=== PATIENT | female | born 1985 | race Caucasian/White ===

== ENCOUNTER 2018-11-09 19:19 | Emergency (ER) | payer OTHER, SELFPAY ==
[2018-11-09 19:22] VITALS: BP 162/99; PULSE 99; RESP 16; TEMP 36.5; O2SAT 99
--- NOTE | 2018-11-09 19:48 | ED.GENADUL_ITS ---
Discharge Plan Disposition Patient Disposition: HOME Condition: Improving Discharge Details Chief Complaint: Abd Prob Clinical Impression: Gastroenteritis Primary Care Provider: Nancy Feldman ED Provider: Riky Croft Home Meds and New Rx's Prescriptions: New ondansetron 4 mg tablet,disintegrating 4 mg PO QID PRN (Reason: nausea and vomiting) Qty: 10 RF: 0 No Action montelukast [Singulair] 10 MG tablet 10 mg PO DAILY Qty: 90 RF: 4 albuterol sulfate [ProAir HFA] 200 PUFF HFA aerosol inhaler 2 puff Inhalation Q6H Qty: 1 RF: 0 cyclobenzaprine 10 MG tablet 10 mg PO HS PRNQty: 30 RF: 0 ibuprofen 600 MG tablet 600 mg PO Q6H PRNQty: 20 RF: 0 famotidine [Pepcid] 20 MG tablet 20 mg PO DAILY Qty: 14 RF: 0 metoclopramide HCl [Reglan] 10 MG tablet 10 mg PO Q8H PRN (Reason: Nausea / Vomiting) Qty: 6 RF: 0 lorazepam 1 MG tablet 1 mg PO DAILY PRN PRN (Reason: Anxiety) Qty: 2 RF: 0 Discharge Instructions Instructions: Gastroenteritis (ED) Additional Instructions: Return immediately to the emergency department for any worsening of symptoms, persistent fever, vomiting, or any further concerns you may have. Otherwise stay well-hydrated, take medication as prescribed. If not improving over the next week please follow-up with your primary care provider for reassessment. Referrals: Nancy Feldman [Primary Care Provider] - (As needed for reassessment) Medical Decision Making Patient presenting to the emergency department chief complaint of abdominal pain. Patient states this is been going on for the past week and started out periumbilical and it seemed to move to the right lower quadrant with decrease in appetite. Patient does state some slight radiation of pain around to right flank that is occurred last 24 hours. She denies any urinary symptoms, fever chills, chest pain shortness of breath or difficulty breathing. Physical exam shows right lower quadrant tenderness at McBurney's point, roving sign, and positive Bernard sign. Plan to check labs and CT imaging. Pending results patient given Zofran and ketorolac. Review of labs show a nonspecific leukocytosis, normal LFTs, otherwise nondiagnostic CMP. Review of CT imaging and radiologist interpretation shows no acute findings. There is some nonspecific bowel gas pattern in the right side of the abdomen but I do not feel that there are any inflammatory changes noted at this time. Patient reassessed and states some improvement of symptoms and improvement of nausea. Patient is tolerating p.o. intake. Given her associated diarrhea nausea and abdominal pain concern for gastroenteritis. Patient prescribed Zofran and encouraged to stay well-hydrated. Return precautions were thoroughly discussed. After discussion of diagnosis and plan of care patient has no further needs, questions, or concerns and states clear understanding to return to the emergency department for any worsening symptoms. HPI General Mode of arrival: ambulatory . Date/Time Provider Initiated Documentation: 11/09/18 19:21 . Limitations to Documentation: no limitations . Information obtained by: patient . History of Present Illness 33 year old F presents to the emergency department with the chief complaint of Right-sided abdominal pain, described as moderate, with intensity rated at 6. Quality is described as aching, and is localized to the abdomen. Patient started experiencing this week(s) (1) and it has been constant. No relieving factors improve symptom(s), Patient did receive the following treatments prior to arrival, none Related Data Home Medications Medication Instructions Recorded Confirmed albuterol sulfate [ProAir HFA] 2 puff INHALATION Q6H #1 inh 05/07/15 montelukast [Singulair] 10 mg PO DAILY #90 tab-cap 05/07/15 cyclobenzaprine 10 mg PO HS PRN #30 tab 01/21/16 lorazepam 1 mg PO DAILY PRN PRN #2 tab 01/30/17 02/01/17 famotidine [Pepcid] 20 mg PO DAILY #14 tablet 02/01/17 ibuprofen 600 mg PO Q6H PRN #20 tab 02/01/17 metoclopramide HCl [Reglan] 10 mg PO Q8H PRN #6 tablet 02/01/17 ondansetron 4 mg PO QID PRN #10 tab 11/09/18 Previous Rx's Medication Instructions Recorded lorazepam 1 mg PO DAILY PRN PRN #2 tab 01/30/17 famotidine [Pepcid] 20 mg PO DAILY #14 tablet 02/01/17 ibuprofen 600 mg PO Q6H PRN #20 tab 02/01/17 metoclopramide HCl [Reglan] 10 mg PO Q8H PRN #6 tablet 02/01/17 ondansetron 4 mg PO QID PRN #10 tab 11/09/18 Allergies Allergy/AdvReac Type Severity Reaction Status Date / Time amoxicillin Allergy Intermediate Skin Rash Unverified 02/01/17 05:47 latex Allergy Intermediate Skin Rash Unverified 02/01/17 05:47 Penicillins Allergy Intermediate Skin Rash Unverified 02/01/17 05:47 azithromycin [From Zithromax] Allergy Unknown Unverified 02/01/17 05:47 lidocaine Allergy Unknown Unverified 02/01/17 05:47 Tetanus Vaccines and Toxoid Allergy Unknown Unverified 02/01/17 05:47 [Tetanus Vaccines & Toxoid] tramadol Allergy Unknown Unverified 02/01/17 05:47 Egg Derived AdvReac Intermediate Nausea Unverified 02/01/17 05:47 lactose AdvReac Unverified 02/01/17 05:47 General Stated Complaint: Abd Prob MERRITT: 3 Review of Systems Constitutional Denies chills, Denies fever(s) and Reports poor appetite Cardiovascular Denies chest pain and Denies dyspnea Respiratory Denies cough and Denies dyspnea Gastrointestinal Reports as per HPI, Reports abdominal pain, Denies melena, Denies change in bowel habits, Denies constipation, Denies diarrhea, Reports nausea and Denies vomiting Genitourinary Denies hematuria, Denies urinary incontinence, Denies urinary hesitancy and Denies urinary urgency Integumentary/Breasts Denies rash PFSH Surgical History HYSTERECTOMY (~2006) Talha Fundoplication (~2006) Tonsillectomy Family History Mother Personal history of malignant neoplasm Father No problems noted. Grandmother Heart disease Social History Smoking and Tabacco status: Former Tobacco Use Exam Const General: cooperative Orientation: alert, awake and oriented x3 Resp Effort & Inspection: normal respiratory effort and able to speak in complete sentences Auscultation: clear to auscultation bilaterally Cardio Rate: regular rate Rhythm: regular rhythm Heart Sounds: S1 normal and S2 normal GI Palpation: soft, no hepatosplenomegaly, not firm, no guarding, no masses, no pulsatile masses, not rigid, no splenomegaly and tender in the RLQ, in the RUQ, at McBurney's point, Bernard's sign positive and Rovsing's sign positive; psoas sign negative and with no rebound tenderness Auscultation: normal bowel sounds Back/Spine/Pelvis Back: no CVA tenderness Neuro General: alert, awake, oriented x3, gait normal and moves all extremities Course Vital Signs Temperature 36.5 C 11/09/18 19:22 Pulse 99 H 11/09/18 19:22 Respiratory Rate 16 11/09/18 19:22 Blood Pressure 162/99 H 11/09/18 19:22 Pulse Oximetry 99 11/09/18 19:22 Temperature 36.5 C 11/09/18 19:22 Temperature Source Skin 11/09/18 19:22 Pulse 99 H 11/09/18 19:22 Respiratory Rate 16 11/09/18 19:22 Respiratory Effort Non-Labored 11/09/18 19:26 Blood Pressure 162/99 H 11/09/18 19:22 Blood Pressure Position Sitting 11/09/18 19:22 Pulse Oximetry 99 11/09/18 19:22 Oxygen Delivery Method Room Air 11/09/18 19:22 Oxygen Flow Rate 0 11/09/18 19:22 Pain Level 8 11/09/18 19:22
[2018-11-09] MEDS: Ketorolac 30 MG/ML VIAL IVP (19:52)
[2018-11-09] MEDS: Normal Saline 1,000 ML 1000 ML IV (19:52)
[2018-11-09] MEDS: Ondansetron 4 MG/2 ML VIAL IVP (19:52)
[2018-11-09 20:07] LABS: ALT 49 U/L (12-78); AST 23 U/L (15-37); Abs Immature Grans 0.01 k/cumm (0.0-0.09); Absolute Basophil Count 0.04 k/cumm (0.0-0.2); Absolute Eosinophil Count 0.12 k/cumm (0.0-0.7); Albumin 3.5 g/dL (3.4-5.0); Alkaline Phosphatase 104 U/L (46-116); Anion Gap 8.3 mmol/L (3-11); BUN 11 mg/dL (7-18); Basophils % 0.3; Bilirubin, Total 0.4 mg/dL (0.2-1.0); CO2 27.7 mmol/L (21.0-32.0); CREATININE 0.83 mg/dL (0.55-1.02); Calcium 9.2 mg/dL (8.5-10.1); Chloride 104 mmol/L (98-107); Glucose 109 mg/dL (70-100); HCT 46.3 % (36.0-46.0); Immature Grans % 0.1; Lymphocytes % 32.3; Mean Corp. HGB Concentration 32.4 g/dL (32.0-36.0); Mean Corpuscular Hemoglobin 27.9 pg (27.0-33.0); Mean Corpuscular Volume 86.2 fL (80-95); Monocytes % 6.3; Platelet Count 405 x1000/uL (130-400); Potassium 3.6 mmol/L (3.5-5.1); RBC 5.37 m/cumm (4.00-5.20); RBC Distribution Width 13.9 % (11.7-14.6); Sodium 140 mmol/L (136-145); White Blood Cell Count 12.31 k/cumm (4.4-10.8)
[2018-11-09 20:08] LABS: Absolute Lymphocyte Count 3.98 k/cumm (1.2-3.4); Absolute Monocyte Count 0.78 k/cumm (0.11-0.7); Absolute Neutrophil Count 7.39 k/cumm (1.2-6.7)
[2018-11-09 20:14] LABS: Lipase 174 U/L (73-393)
[2018-11-09] MEDS: Omnipaque 350 MG/ML 100 ML BTL IJ (20:19)
--- NOTE | 2018-11-09 20:19 | DI.CT_ITS ---
SYMPTOMS/DIAGNOSIS: RIGHT-SIDED ABDOMINAL PAIN X 1 WEEKS, WORSENING, HAVING DIARRHEA CT OF THE ABDOMEN AND PELVIS: There are no prior comparison exams. Images were performed from the lung bases through the ischial tuberosities after IV and without oral contrast. The lung bases are clear. The liver shows fatty infiltration. Surgical clips are seen near the GE junction. The gallbladder, spleen, pancreas, kidneys and adrenals are unremarkable. The patient is status post hysterectomy. The bladder is unremarkable. The appendix appears normal. There is no bowel dilatation or inflammatory change. There is no free air or free fluid. There is a minimal amount of fat in the umbilicus. The aorta is normal in diameter. There are mild degenerative changes in the spine. IMPRESSION: Fatty infiltration of the liver. No acute abnormality.
--- NOTE | 2018-11-09 20:35 | DI.VRAD_ITS ---
EXAM: CT Abdomen and Pelvis With Contrast EXAM DATE/TIME: 11/09/2018 7:47 PM CLINICAL HISTORY: 33 years old, female; right abdominal pain; Prior surgery; date: 6+ months; hysterectomy TECHNIQUE: Axial computed tomography images of the abdomen and pelvis with intravenous contrast. All CT scans at this facility use at least one of these dose optimization techniques: automated exposure control; mA and/or kV adjustment per patient size (includes targeted exams where dose is matched to clinical indication); or iterative reconstruction. Coronal and sagittal reformatted images were created and reviewed. CONTRAST: Contrast Material: 100 ml of [id number]; Contrast Route: iv COMPARISON: No relevant prior studies available. FINDINGS: Lower thorax: No acute findings. ABDOMEN: Liver: Liver fatty infiltration. Gallbladder and bile ducts: Normal. No calcified stones. No ductal dilation. Pancreas: Normal. No ductal dilation. Spleen: Normal. No splenomegaly. Adrenals: Normal. No mass. Kidneys and ureters: Normal. No hydronephrosis. Stomach and bowel: Surgical clips in the GE junction region. Appendix: Normal appendix. PELVIS: Bladder: Unremarkable as visualized. Reproductive: Status post hysterectomy. ABDOMEN and PELVIS: Intraperitoneal space: Normal. No free air. No significant fluid collection. Bones/joints: Thoracic spinal degenerative changes. Soft tissues: Posterior subcutaneous edema in the lumbar region. Small fat-containing umbilical hernia. Vasculature: Normal. No abdominal aortic aneurysm. Lymph nodes: Normal. No enlarged lymph nodes. IMPRESSION: 1. No acute intra-abdominal or pelvic process. 2. Liver fatty infiltration. Dictated and Authenticated by: Chun Jonhson MD. Ordering:DEEDEE Lan MD
[2018-11-09 21:43] VITALS: BP 154/90; PULSE 92; RESP 16; TEMP 36.5; O2SAT 99
== END 2018-11-09 21:35 | disposition home or self-care (01) ==
PROVIDERS: Emergency Provider Nurse Practitioner Family; PCP Nurse Practitioner
DX: K52.9 Noninfective gastroenteritis and colitis, unspecified (principal)
CPT/HCPCS: 36415; 80053; 83690; 96361; 96374; 96375; 99285; 74177; 81003; 85025; 99284; J1885; J2405; J3490

== ENCOUNTER 2018-11-14 07:51 | Outpatient (CLI) | payer OTHER, SELFPAY ==
--- NOTE | 2018-11-14 08:13 | DI.US_ITS ---
SYMPTOM/DIAGNOSIS: ABD PAIN, R10.9, NAUSEA, R11.2, VOMITING ABDOMEN ULTRASOUND: Routine examination was performed. The study is limited due to patient body habitus and overlying bowel. The proximal aorta and IVC were obscured due to overlying bowel. The mid and distal aorta are of normal caliber. The liver measures 20.0 cm. in length. There is diffuse increased echogenicity of the liver suggesting hepatic steatosis. No discrete hepatic mass is seen. The portal vein could not be visualized on this examination. The gallbladder was negative. No stones, sludge or gallbladder wall thickening is seen. There was a negative sonographic Bernard's sign. The common duct is within normal limits at .4 cm. The pancreas was obscured by overlying bowel. The spleen measured 12 cm. in length. The kidneys were unremarkable sonographically. IMPRESSION: 1. Limited examination due to patient body habitus and bowel gas. 2. Hepatomegaly and hepatic steatosis.
== END 2018-11-14 08:11 ==
PROVIDERS: PCP Nurse Practitioner; Visit Provider Nurse Practitioner
DX: R10.84 Generalized abdominal pain (principal); R11.2 Nausea with vomiting, unspecified; R16.0 Hepatomegaly, not elsewhere classified; K76.0 Fatty (change of) liver, not elsewhere classified
CPT/HCPCS: 76700

== ENCOUNTER 2019-02-04 08:52 | Outpatient (REF) | payer OTHER, SELFPAY ==
[2019-02-04 14:47] LABS: Cholesterol 181 mg/dL (50-200); HDL Cholesterol 40 mg/dL (40-60); LDL CHOLESTEROL 115 mg/dL (<100); TSH (W/Ref FT4) 5.53 uIU/mL (0.358-3.74); Triglyceride 112 mg/dL (30-150); Vitamin B12 539 pg/mL (193-986)
[2019-02-04 15:48] LABS: FREE T4 0.98 ng/dL (0.76-1.46)
== END 2019-02-04 09:12 ==
LOC: NCHCN 08:52
PROVIDERS: PCP Nurse Practitioner; Visit Provider Nurse Practitioner
DX: E03.9 Hypothyroidism, unspecified (principal); F32.9 Major depressive disorder, single episode, unspecified; K76.0 Fatty (change of) liver, not elsewhere classified; E66.9 Obesity, unspecified
CPT/HCPCS: 80061; 82306; 83721; 82607; 84439; 84443

== ENCOUNTER 2019-06-03 16:09 | Outpatient (REF) | payer OTHER, SELFPAY ==
[2019-06-03 20:15] LABS: Vitamin D 25 Total 15.3 ng/ml (30-100)
== END 2019-06-03 16:29 ==
LOC: NCHCN 16:09
PROVIDERS: PCP Nurse Practitioner; Visit Provider Nurse Practitioner
DX: E55.9 Vitamin D deficiency, unspecified (principal)
CPT/HCPCS: 82306

== ENCOUNTER 2019-06-05 00:50 | Outpatient (CLI) | payer OTHER, SELFPAY ==
--- NOTE | 2019-06-05 17:18 | DI.DEXA_ITS ---
EXAM: XR DEXA BONE DENSITY W/WO ARNIE INDICATION: SCREENING FOR OSTEOPOROSIS Z13.80, VIT D DEFICIENCY E55.9, SMOKER F17.210. EARLY [place] SE,E28.319. COMPARISON: No exams were available for comparison TECHNIQUE: 2D digital imaging was performed. FINDINGS: The scanogram is unremarkable. For the left hip, a T-score -0.3 and a Z-score -0.2 would be consiste nt with the normal range. For the lumbar spine, T-score of 0.1 and a Z-score of 0.2 are also withi n the normal range. The left forearm T-score is -0.4 and a Z-score of -0.1 are within the normal ran ge. IMPRESSION
== END 2019-06-05 01:10 ==
PROVIDERS: PCP Nurse Practitioner; Visit Provider Nurse Practitioner
DX: E55.9 Vitamin D deficiency, unspecified (principal); E28.319 Asymptomatic premature menopause; Z13.820 Encounter for screening for osteoporosis; F17.220 Nicotine dependence, chewing tobacco, uncomplicated
CPT/HCPCS: 77080

== ENCOUNTER 2019-09-24 09:46 | Outpatient (REF) | payer OTHER, SELFPAY ==
[2019-09-24 13:03] LABS: ALT 42 U/L (14-59); AST 24 U/L (15-37); Albumin 3.8 g/dL (3.4-5.0); Alkaline Phosphatase 89 U/L (46-116); Anion Gap 12.5 mmol/L (3-11); BUN 13 mg/dL (7-18); Bilirubin, Total 0.7 mg/dL (0.2-1.0); CO2 26.5 mmol/L (21.0-32.0); CREATININE 0.82 mg/dL (0.55-1.02); Calcium 9.2 mg/dL (8.5-10.1); Chloride 104 mmol/L (98-107); Glucose 98 mg/dL (74-106); Potassium 3.9 mmol/L (3.5-5.1); Sodium 143 mmol/L (136-145); TSH (W/Ref FT4) 2.36 uIU/mL (0.36-3.74); Total Protein 7.4 g/dL (6.4-8.2)
[2019-09-26 05:42] LABS: Vitamin D 25 Total 21.1 ng/ml (30-100)
== END 2019-09-24 10:06 ==
LOC: NCHCN 09:46
PROVIDERS: PCP Nurse Practitioner; Visit Provider Nurse Practitioner
DX: E03.9 Hypothyroidism, unspecified (principal); E55.9 Vitamin D deficiency, unspecified
CPT/HCPCS: 80053; 82306; 84443

== ENCOUNTER 2019-11-13 13:25 | Outpatient (REF) | payer OTHER, SELFPAY ==
[2019-11-15 10:39] LABS: HIV-1/2 Ag & Ab Screen Negative (Negative)
[2019-11-15 14:15] LABS: Chlamydia Result Negative (Negative); GC Result Negative (Negative)
== END 2019-11-13 13:45 ==
LOC: NCHCN 13:25
PROVIDERS: PCP Nurse Practitioner; Visit Provider Nurse Practitioner
DX: Z11.3 Encounter for screening for infections with a predominantly sexual mode of transmission (principal); Z11.4 Encounter for screening for human immunodeficiency virus [HIV]
CPT/HCPCS: 87389; 87491; 87591

== ENCOUNTER → 2020-09-10 11:02 | Outpatient (CLI) | payer OTHER, SELFPAY ==
--- NOTE | 2020-09-10 10:00 | DI.RAD_ITS ---
EXAM: XR KNEE RT 4V AP,LAT,DASHA,PAT CLINICAL HISTORY: right knee pain. TECHNIQUE: 2D digital imaging was performed. COMPARISON: No previous for comparison. FINDINGS: BONES: No acute fracture is present. No bony destructive lesion is seen. There is an enthesophyte at the superior patella. JOINTS: The knee is normally aligned. No joint effusion is seen. Mild joint space narrowing and peria rticular spurring is seen in the lateral femoral tibial joint. SOFT TISSUE: Normal. IMPRESSION: Mild degenerative changes of the right knee. DATA REPOSITORY: RADIATION DOSE DELIVERED:
== END ==
PROVIDERS: PCP Nurse Practitioner; Visit Provider Physician Assistant
DX: M17.11 Unilateral primary osteoarthritis, right knee (principal)
CPT/HCPCS: 73564

== ENCOUNTER 2020-12-16 10:51 | Outpatient (REF) | payer OTHER, SELFPAY ==
[2020-12-16 16:11] LABS: HCT 44.4 % (36.0-46.0); HGB 14.1 g/dL (11.2-15.7); MCH 28.6 pg (27.0-33.0); MCHC 31.8 % (32.0-36.0); MCV 90.1 fL (80-95); MPV 10.6 fL (8.0-11.0); Platelet Count 325 10^3/uL (130-400); RBC 4.93 10^6/uL (3.93-5.22); RDW 12.7 % (11.7-14.6); WBC 8.98 10^3/uL (4.4-10.8)
[2020-12-16 16:30] LABS: ALT 62 U/L (14-59); AST 27 U/L (15-37); Albumin 3.8 g/dL (3.4-5.0); Alkaline Phosphatase 85 U/L (46-116); Anion Gap 10.3 mmol/L (3-11); BUN 15 mg/dL (7-18); Bilirubin, Total 0.4 mg/dL (0.2-1.0); CO2 26.7 mmol/L (21.0-32.0); CREATININE 0.9 mg/dL (0.55-1.02); Calcium 9.7 mg/dL (8.5-10.1); Chloride 105 mmol/L (98-107); Glucose 98 mg/dL (74-106); Potassium 4.7 mmol/L (3.5-5.1); Sodium 142 mmol/L (136-145); TSH (W/Ref FT4) 3.15 uIU/mL (0.36-3.74); Total Protein 7.3 g/dL (6.4-8.2)
[2020-12-17 04:32] LABS: Vitamin D 25 Total 22.7 ng/mL (30-100)
== END 2020-12-16 10:52 | disposition home or self-care (01) ==
LOC: NCHCN 10:51
PROVIDERS: PCP Nurse Practitioner; Visit Provider Nurse Practitioner
DX: E03.9 Hypothyroidism, unspecified (principal); R53.83 Other fatigue; E55.9 Vitamin D deficiency, unspecified
CPT/HCPCS: 80053; 82306; 85027; 84443

== ENCOUNTER 2021-03-30 16:40 | Emergency (ER) | payer OTHER, SELFPAY ==
[2021-03-30 16:58] VITALS: BP 130/85; PULSE 89; RESP 18
--- NOTE | 2021-03-30 17:41 | W.ED.GENAD ---
Discharge Plan Disposition Patient Disposition: HOME Condition: Stable Discharge Details Clinical Impression: Pain of left heel, Heel spur Primary Care Provider: Nancy Feldman ED Provider: Sonido Brown Home Meds and New Rx's Prescriptions: No Action montelukast [Singulair] 10 MG tablet 10 mg PO DAILY Qty: 90 RF: 4 albuterol sulfate [ProAir HFA] 200 PUFF HFA aerosol inhaler 2 puff Inhalation Q6H Qty: 1 RF: 0 cyclobenzaprine 10 MG tablet 10 mg PO HS PRNQty: 30 RF: 0 ibuprofen 600 MG tablet 600 mg PO Q6H PRNQty: 20 RF: 0 famotidine [Pepcid] 20 MG tablet 20 mg PO DAILY Qty: 14 RF: 0 metoclopramide HCl [Reglan] 10 MG tablet 10 mg PO Q8H PRN (Reason: Nausea / Vomiting) Qty: 6 RF: 0 lorazepam 1 MG tablet 1 mg PO DAILY PRN PRN (Reason: Anxiety) Qty: 2 RF: 0 ondansetron 4 mg tablet,disintegrating 4 mg PO QID PRN (Reason: nausea and vomiting) Qty: 10 RF: 0 Discharge Instructions Instructions: Heel Spur (ED) Additional Instructions: Medication reconciliation could not be performed today. Please discuss your medications with your doctor. Please take acetaminophen (tylenol) - 650mg every 6 hours by mouth as needed for pain. Please take ibuprofen over the counter. Take 600mg by mouth every 6 hours as needed for pain. Please use orthopedic boot and crutches. Minimize weightbearing to toe-touch only for the next 1 week. Please follow-up with orthopedics. If pain persist additional diagnostic testing will be necessary. Please contact your primary care physician to arrange follow-up. Return to the ER for any worsening or new concerning symptoms. Stand Alone Forms: Work Release Referrals: [facility] [Provider Group] Nancy Feldman [Primary Care Provider] - Discharge Data Discharge Date/Time-TO BE ENTERED AT DEPARTURE: 03/30/21 19:10 Medical Decision Making <Sonido Brown MD - Last Filed: 04/11/21 10:11> 36-year-old female here with left heel pain that started about a month ago when she directly impacted her heel on a sharp stone. Consider persistent calcaneal fracture. X-ray of the left calcaneus was reviewed and interpreted by radiology: Heel spurs present, no fracture. Patient has been ambulating on her foot. I will provide short orthopedic ankle boot and advised her to use crutches with toe-touch weightbearing. She has crutches at home and does not need additional at this time. I advised her to follow-up with orthopedics. <CARLINE Barahona - Last Filed: 04/01/21 21:16> My name was entered into this chart in error. HPI <Sonido Brown MD - Last Filed: 04/11/21 10:11> General Date/Time Provider Initiated Documentation: 03/30/21 17:41. Related Data Home Medications Medication Instructions Recorded Confirmed albuterol sulfate [ProAir HFA] 2 puff INHALATION Q6H #1 inh 05/07/15 09/10/20 montelukast [Singulair] 10 mg PO DAILY #90 tab-cap 05/07/15 09/10/20 cyclobenzaprine 10 mg PO HS PRN #30 tab 01/21/16 09/10/20 lorazepam 1 mg PO DAILY PRN PRN #2 tab 01/30/17 09/10/20 famotidine [Pepcid] 20 mg PO DAILY #14 tab 02/01/17 09/10/20 ibuprofen 600 mg PO Q6H PRN #20 tab 02/01/17 09/10/20 metoclopramide HCl [Reglan] 10 mg PO Q8H PRN #6 tab 02/01/17 09/10/20 ondansetron 4 mg PO QID PRN #10 tab 11/09/18 09/10/20 Previous Rx's Medication Instructions Recorded lorazepam 1 mg PO DAILY PRN PRN #2 tab 01/30/17 famotidine [Pepcid] 20 mg PO DAILY #14 tab 02/01/17 ibuprofen 600 mg PO Q6H PRN #20 tab 02/01/17 metoclopramide HCl [Reglan] 10 mg PO Q8H PRN #6 tab 02/01/17 ondansetron 4 mg PO QID PRN #10 tab 11/09/18 Allergies Allergy/AdvReac Type Severity Reaction Status Date / Time amoxicillin Allergy Intermediate Skin Rash Unverified 03/30/21 17:02 latex Allergy Intermediate Skin Rash Unverified 03/30/21 17:02 Penicillins Allergy Intermediate Skin Rash Unverified 03/30/21 17:02 azithromycin [From Zithromax] Allergy Unknown Unverified 03/30/21 17:02 lidocaine Allergy Unknown Unverified 03/30/21 17:02 Tetanus Vaccines and Toxoid Allergy Unknown Unverified 03/30/21 17:02 [Tetanus Vaccines & Toxoid] tramadol Allergy Unknown Unverified 03/30/21 17:02 Egg Derived AdvReac Intermediate Nausea Unverified 03/30/21 17:02 lactose AdvReac Unverified 03/30/21 17:02 <CARLINE Barahona - Last Filed: 04/01/21 21:16> General Stated Complaint: Orthopedic MERRITT: 4 PFSH <Sonido Brown MD - Last Filed: 04/11/21 10:11> Medical History (Updated 03/30/21 @ 18:59 by Sonido Brown MD) Internal derangement of right knee Patellar tendinitis of right knee Surgical History HYSTERECTOMY (~2006) ENDOMETRIOSIS/cervix still intact Talha Fundoplication (~2006) Tonsillectomy 16 YRS OLD Family History Mother Personal history of malignant neoplasm SKIN Father No problems noted. Grandmother Heart disease Social History Smoking/Tobacco Use Status: Former Tobacco Use Smoking risk assessment performed?: Yes Alcohol Intake: never Drug use: Never Substance use type: does not use Do you feel safe in your relationship?: Yes Exam <Sonido Brown MD - Last Filed: 04/11/21 10:11> Const General: cooperative and no acute distress Cardio Rate: regular rate and not tachycardic Rhythm: regular rhythm Skin General skin exam: no rashes or lesions noted Neuro General: patient alert, patient awake, patient oriented x3 and tone normal Extrem Left lower extremity: foot Details: tenderness Location: of the calcaneus Details: point tenderness, toes with normal ROM, no edema, vascular exam Details: dorsalis pedis pulse present and normal capillary refill and motor-sensory exam Details: light-touch normal; no unusual warmth, no lacerations and no ecchymosis <CARLINE Barahona - Last Filed: 04/01/21 21:16> Vital Signs Vital signs: Vital Signs Pulse 89 03/30/21 16:58 Respiratory Rate 18 03/30/21 16:58 Blood Pressure 130/85 03/30/21 16:58 Pulse 89 03/30/21 16:58 Respiratory Rate 18 03/30/21 16:58 Respiratory Effort Non-Labored 03/30/21 17:01 Blood Pressure 130/85 03/30/21 16:58 Blood Pressure Position Sitting 03/30/21 16:58 Pain Level 10 03/30/21 16:58
--- NOTE | 2021-03-30 17:45 | DI.RAD_ITS ---
Exam(s) XR HEEL LT OS CALCIS EXAM: XR HEEL LT OS CALCIS CLINICAL HISTORY: pain 1 month after injury. TECHNIQUE: 2D digital imaging was performed. COMPARISON: No exams were available for comparison FINDINGS: Two dedicated views of the left calcaneus including lateral and Tim axial view. There is no evidence of acute fracture. No heel ulcer. No radiopaque foreign body. No radiographic evidence of osteomyelitis. 5 millimeter inferior calcaneal spur is noted. Calcification is noted a t the insertion site of the Achilles tendon on the posterior aspect of the calcaneus. Os trigonum no han. Anterior process of the calcaneus is intact. Calcaneocuboid and subtalar joints appear unremar kable as does the talonavicular joint. IMPRESSION: No fracture. No radiopaque foreign body. DATA REPOSITORY: RADIATION DOSE DELIVERED:
[2021-03-30] MEDS: Acetaminophen 325 MG TAB 650 MG PO (18:00)
--- NOTE | 2021-03-30 18:24 | DI.VRAD_ITS ---
PROCEDURE INFORMATION: Exam: XR Left Calcaneus Exam date and time: 03/30/2021 5:55 PM Age: 36 years old Clinical indication: Patient HX: Left heel pain, PT stubbed heel on rock x1 month ago, worsening pain TECHNIQUE: Imaging protocol: XR of the Left calcaneus. Views: 2 or more views. Total images: 2 COMPARISON: CR LEFT KNEE 3 VIEW COMPLETE 09/18/2016 4:23 PM FINDINGS: Bones/joints: There is posterior and plantar calcaneal enthesophyte formation. No acute fracture or malalignment. Soft tissues: Normal. IMPRESSION: 1. Heel spur. 2. No acute fracture or malalignment. Dictated and Authenticated by: Jarett Fuller MD. Ordering:ALPHONSE Head MD
--- NOTE | 2021-03-30 18:57 | W.ED.GENAD ---
Discharge Plan Disposition Patient Disposition: HOME Condition: Stable Discharge Details Chief Complaint: Orthopedic Clinical Impression: Pain of left heel, Heel spur Primary Care Provider: Nancy Feldman ED Provider: Sonido Brown Home Meds and New Rx's Prescriptions: No Action montelukast [Singulair] 10 MG tablet 10 mg PO DAILY Qty: 90 RF: 4 albuterol sulfate [ProAir HFA] 200 PUFF HFA aerosol inhaler 2 puff Inhalation Q6H Qty: 1 RF: 0 cyclobenzaprine 10 MG tablet 10 mg PO HS PRNQty: 30 RF: 0 ibuprofen 600 MG tablet 600 mg PO Q6H PRNQty: 20 RF: 0 famotidine [Pepcid] 20 MG tablet 20 mg PO DAILY Qty: 14 RF: 0 metoclopramide HCl [Reglan] 10 MG tablet 10 mg PO Q8H PRN (Reason: Nausea / Vomiting) Qty: 6 RF: 0 lorazepam 1 MG tablet 1 mg PO DAILY PRN PRN (Reason: Anxiety) Qty: 2 RF: 0 ondansetron 4 mg tablet,disintegrating 4 mg PO QID PRN (Reason: nausea and vomiting) Qty: 10 RF: 0 Discharge Instructions Instructions: Heel Spur (ED) Additional Instructions: Medication reconciliation could not be performed today. Please discuss your medications with your doctor. Please take acetaminophen (tylenol) - 650mg every 6 hours by mouth as needed for pain. Please take ibuprofen over the counter. Take 600mg by mouth every 6 hours as needed for pain. Please use orthopedic boot and crutches. Minimize weightbearing to toe-touch only for the next 1 week. Please follow-up with orthopedics. If pain persist additional diagnostic testing will be necessary. Please contact your primary care physician to arrange follow-up. Return to the ER for any worsening or new concerning symptoms. Stand Alone Forms: Work Release Referrals: [facility] [Provider Group] Nancy Feldman [Primary Care Provider] - [facility] General Date/Time Provider Initiated Documentation: 03/30/21 17:41. Related Data Home Medications Medication Instructions Recorded Confirmed albuterol sulfate [ProAir HFA] 2 puff INHALATION Q6H #1 inh 05/07/15 09/10/20 montelukast [Singulair] 10 mg PO DAILY #90 tab-cap 05/07/15 09/10/20 cyclobenzaprine 10 mg PO HS PRN #30 tab 01/21/16 09/10/20 lorazepam 1 mg PO DAILY PRN PRN #2 tab 01/30/17 09/10/20 famotidine [Pepcid] 20 mg PO DAILY #14 tab 02/01/17 09/10/20 ibuprofen 600 mg PO Q6H PRN #20 tab 02/01/17 09/10/20 metoclopramide HCl [Reglan] 10 mg PO Q8H PRN #6 tab 02/01/17 09/10/20 ondansetron 4 mg PO QID PRN #10 tab 11/09/18 09/10/20 Previous Rx's Medication Instructions Recorded lorazepam 1 mg PO DAILY PRN PRN #2 tab 01/30/17 famotidine [Pepcid] 20 mg PO DAILY #14 tab 02/01/17 ibuprofen 600 mg PO Q6H PRN #20 tab 02/01/17 metoclopramide HCl [Reglan] 10 mg PO Q8H PRN #6 tab 02/01/17 ondansetron 4 mg PO QID PRN #10 tab 11/09/18 Allergies Allergy/AdvReac Type Severity Reaction Status Date / Time amoxicillin Allergy Intermediate Skin Rash Unverified 03/30/21 17:02 latex Allergy Intermediate Skin Rash Unverified 03/30/21 17:02 Penicillins Allergy Intermediate Skin Rash Unverified 03/30/21 17:02 azithromycin [From Zithromax] Allergy Unknown Unverified 03/30/21 17:02 lidocaine Allergy Unknown Unverified 03/30/21 17:02 Tetanus Vaccines and Toxoid Allergy Unknown Unverified 03/30/21 17:02 [Tetanus Vaccines & Toxoid] tramadol Allergy Unknown Unverified 03/30/21 17:02 Egg Derived AdvReac Intermediate Nausea Unverified 03/30/21 17:02 lactose AdvReac Unverified 03/30/21 17:02 General Stated Complaint: Orthopedic MERRITT: 4 [facility] Medical History (Updated 03/30/21 @ 18:59 by Sonido Brown MD) Internal derangement of right knee Patellar tendinitis of right knee Surgical History HYSTERECTOMY (~2006) ENDOMETRIOSIS/cervix still intact Talha Fundoplication (~2006) Tonsillectomy 16 YRS OLD Family History Mother Personal history of malignant neoplasm SKIN Father No problems noted. Grandmother Heart disease Social History Smoking/Tobacco Use Status: Former Tobacco Use Smoking risk assessment performed?: Yes Alcohol Intake: never Drug use: Never Substance use type: does not use Do you feel safe in your relationship?: Yes Course Vital Signs Vital signs: Vital Signs Pulse 89 03/30/21 16:58 Respiratory Rate 18 03/30/21 16:58 Blood Pressure 130/85 03/30/21 16:58 Pulse 89 03/30/21 16:58 Respiratory Rate 18 03/30/21 16:58 Respiratory Effort Non-Labored 03/30/21 17:01 Blood Pressure 130/85 03/30/21 16:58 Blood Pressure Position Sitting 03/30/21 16:58 Pain Level 10 03/30/21 16:58
== END 2021-03-30 19:10 | disposition home or self-care (01) ==
PROVIDERS: Emergency Provider Student in an Organized Health Care Education/Training Program; PCP Nurse Practitioner
DX: M79.672 Pain in left foot (principal); M77.32 Calcaneal spur, left foot
CPT/HCPCS: 29515; 99283; 73650

== ENCOUNTER 2022-10-26 16:51 | Outpatient (REF) | payer OTHER, SELFPAY ==
[2022-10-26 19:04] LABS: Abs Immature Grans 0.02 10^3/uL (0.0-0.06); Absolute Basophil Count 0.05 10^3/uL (0.0-0.2); Absolute Eosinophil Count 0.11 10^3/uL (0.0-0.7); Absolute Monocyte Count 0.56 10^3/uL (0.1-0.8); Basophils % 0.5; Eosinophils % 1.1; HCT 43.6 % (36.0-46.0); HGB 13.9 g/dL (11.2-15.7); Immature Grans % 0.2; Lymphocytes % 36.5; MCH 28.5 pg (27.0-33.0); MCHC 31.9 % (32.0-36.0); MCV 89 fL (80-95); MPV 10.2 fL (8.0-11.0); Monocytes % 5.5; Neutrophils % 56.2; Platelet Count 343 10^3/uL (130-400); RBC 4.88 10^6/uL (3.93-5.22); RDW 13.2 % (11.7-14.6); RDW-SD 43.6 fL; WBC 10.14 10^3/uL (4.4-10.8)
[2022-10-26 19:38] LABS: ALT 67 U/L (14-59); AST 40 U/L (15-37); Albumin 4.1 g/dL (3.4-5.0); Alkaline Phosphatase 95 U/L (46-116); Anion Gap 9.8 mmol/L (3-11); BUN 13 mg/dL (7-18); Bilirubin, Total 0.5 mg/dL (0.2-1.0); CO2 28.2 mmol/L (21.0-32.0); CREATININE 0.8 mg/dL (0.55-1.02); Calcium 9.7 mg/dL (8.5-10.1); Chloride 101 mmol/L (98-107); Estimated GFR 96.06 (mL/min/1.73m2); Glucose 94 mg/dL (74-106); Potassium 3.8 mmol/L (3.5-5.1); Sodium 139 mmol/L (136-145); Total Protein 7.9 g/dL (6.4-8.2); Vitamin B12 745 pg/mL (193-986)
[2022-10-26 19:56] LABS: FREE T4 0.97 ng/dL (0.76-1.46)
[2022-10-26 20:32] LABS: Vitamin D 25 Total 35.2 ng/mL (30-100)
== END 2022-10-26 16:52 | disposition home or self-care (01) ==
LOC: NCHCN 16:51
PROVIDERS: PCP Nurse Practitioner; Visit Provider Nurse Practitioner Family
DX: E03.9 Hypothyroidism, unspecified (principal); R53.83 Other fatigue; K76.0 Fatty (change of) liver, not elsewhere classified; Z13.21 Encounter for screening for nutritional disorder; Z91.89 Other specified personal risk factors, not elsewhere classified
CPT/HCPCS: 80053; 82306; 82607; 84439; 84443; 85025

== ENCOUNTER 2022-12-15 16:15 | Outpatient (REF) | payer OTHER, SELFPAY ==
--- NOTE | 2022-12-15 15:45 | PAPFT_PTH ---
PATIENT: Jennifer Valencia LOC: [facility] U#:[id number] AGE/SX: 37/F ROOM: RE12/15/[address]: Nanette Chew DO : 1985 BED: DIS: 12/15/2022 SPEC #: [id number] RECD: 12/15/22 18:32 STATUS: AVANIAlice REQ #: [id number] GLENN: 12/15/22 15:[address]: Nanette Chew DEPT: [facility] Cytology RECD BY: Chantal Romo ENTERED: 12/15/22 18:33 SP TYPE: PAPFT OTHR DR: Nancy Feldman Tissues: 1 - CX/ENDOCX FOR PAP SMEARS Procedures: PAP THIN PREP/UVM Screening HPV DNA PROBE Comments: [id number] (HPV 16 & 18/45)
== END 2022-12-15 16:16 | disposition home or self-care (01) ==
LOC: LBN 16:15
PROVIDERS: PCP Nurse Practitioner; Visit Provider Obstetrics & Gynecology
DX: Z12.4 Encounter for screening for malignant neoplasm of cervix (principal); Z11.51 Encounter for screening for human papillomavirus (HPV); R87.810 Cervical high risk human papillomavirus (HPV) DNA test positive
CPT/HCPCS: 88142; 87624

== ENCOUNTER 2023-01-20 15:19 | Outpatient (REF) | payer OTHER, SELFPAY ==
[2023-01-20 14:31] LABS: Abs Immature Grans 0.03 10^3/uL (0.0-0.06); Absolute Basophil Count 0.04 10^3/uL (0.0-0.2); Absolute Eosinophil Count 0.12 10^3/uL (0.0-0.7); Absolute Lymphocyte Count 3.12 10^3/uL (1.2-3.4); Basophils % 0.3; HCT 45.7 % (36.0-46.0); HGB 14.8 g/dL (11.2-15.7); Immature Grans % 0.3; Lymphocytes % 26.5; MCH 28.2 pg (27.0-33.0); MCHC 32.4 % (32.0-36.0); MCV 87 fL (80-95); MPV 10.6 fL (8.0-11.0); Monocytes % 5.3; Neutrophils % 66.6; Platelet Count 365 10^3/uL (130-400); RBC 5.25 10^6/uL (3.93-5.22); RDW-SD 41.1 fL; WBC 11.78 10^3/uL (4.4-10.8)
[2023-01-20 14:32] LABS: Absolute Monocyte Count 0.62 10^3/uL (0.1-0.8); Absolute Neutrophil Count 7.85 10^3/uL (1.2-6.7)
[2023-01-20 14:35] LABS: ALT 87 U/L (14-59); AST 43 U/L (15-37); Albumin 3.9 g/dL (3.4-5.0); Alkaline Phosphatase 100 U/L (46-116); Anion Gap 7.3 mmol/L (3-11); BUN 11 mg/dL (7-18); Bilirubin, Total 0.5 mg/dL (0.2-1.0); CO2 27.7 mmol/L (21.0-32.0); CREATININE 0.8 mg/dL (0.55-1.02); Calcium 9.9 mg/dL (8.5-10.1); Chloride 104 mmol/L (98-107); Estimated GFR 95.46 (mL/min/1.73m2); Glucose 88 mg/dL (74-106); Lipase 33 U/L (16-77); Potassium 4.6 mmol/L (3.5-5.1); Sodium 139 mmol/L (136-145)
== END 2023-01-20 15:20 | disposition home or self-care (01) ==
LOC: LBN 15:19
PROVIDERS: PCP Nurse Practitioner Family; Visit Provider Physician Assistant Medical
DX: R10.11 Right upper quadrant pain (principal)
CPT/HCPCS: 80053; 83690; 85025

== ENCOUNTER 2023-05-26 15:30 | Outpatient (REF) | payer OTHER, SELFPAY ==
[2023-05-26 16:21] LABS: HCT 45.2 % (36.0-46.0); HGB 14.5 g/dL (11.2-15.7); MCH 28.3 pg (27.0-33.0); MCHC 32.1 % (32.0-36.0); MCV 88 fL (80-95); MPV 10.6 fL (8.0-11.0); Platelet Count 305 10^3/uL (130-400); RBC 5.13 10^6/uL (3.93-5.22); RDW 13.2 % (11.7-14.6); RDW-SD 43.2 fL; WBC 8.86 10^3/uL (4.4-10.8)
[2023-05-26 16:26] LABS: ESR 16 mm/hr (0-20)
[2023-05-26 16:45] LABS: Iron 77 ug/dL (50-170)
[2023-05-26 16:59] LABS: ALT 55 U/L (14-59); AST 31 U/L (15-37); Albumin 4.1 g/dL (3.4-5.0); Alkaline Phosphatase 90 U/L (46-116); Anion Gap 9.8 mmol/L (3-11); BUN 15 mg/dL (7-18); Bilirubin, Total 0.5 mg/dL (0.2-1.0); C-Reactive Protein 0.98 mg/dL (0.0-0.3); CO2 29.2 mmol/L (21.0-32.0); Chloride 102 mmol/L (98-107); Estimated GFR 73.04 (mL/min/1.73m2); Glucose 91 mg/dL (74-106); Potassium 4.3 mmol/L (3.5-5.1); Sodium 141 mmol/L (136-145); TSH (W/Ref FT4) 2.17 uIU/mL (0.36-3.74); Total Protein 7.7 g/dL (6.4-8.2)
[2023-05-26 17:06] LABS: Vitamin D 25 Total 32.8 ng/mL (30-100)
[2023-05-26 17:48] LABS: Cholesterol 188 mg/dL (<200)
[2023-05-26 19:25] LABS: Calculated LDL 109 mg/dL (<100); HDL Cholesterol 47 mg/dL (40-60); Triglyceride 161 mg/dL (<150); Vitamin B12 722 pg/mL (193-986)
== END 2023-05-26 15:31 | disposition home or self-care (01) ==
LOC: NCHCN 15:30
PROVIDERS: PCP Nurse Practitioner Family; Visit Provider Nurse Practitioner Family
DX: R53.83 Other fatigue (principal); K76.0 Fatty (change of) liver, not elsewhere classified; E78.5 Hyperlipidemia, unspecified; E03.9 Hypothyroidism, unspecified; R73.09 Other abnormal glucose; E55.9 Vitamin D deficiency, unspecified; R79.82 Elevated C-reactive protein (CRP); Z79.899 Other long term (current) drug therapy
CPT/HCPCS: 80053; 80061; 82306; 85027; 85652; 82607; 83540; 84443; 86140

== ENCOUNTER 2023-11-17 19:05 | Outpatient (REF) | payer OTHER, SELFPAY ==
[2023-11-17 15:22] LABS: Abs Immature Grans 0.02 10^3/uL (0.0-0.06); Absolute Basophil Count 0.06 10^3/uL (0.0-0.2); Absolute Eosinophil Count 0.11 10^3/uL (0.0-0.7); Absolute Monocyte Count 0.53 10^3/uL (0.1-0.8); Absolute Neutrophil Count 6.15 10^3/uL (1.2-6.7); Basophils % 0.6; Eosinophils % 1.1; HCT 45.2 % (36.0-46.0); HGB 14.7 g/dL (11.2-15.7); Immature Grans % 0.2; Lymphocytes % 31.8; MCH 28.8 pg (27.0-33.0); MCHC 32.5 % (32.0-36.0); MCV 89 fL (80-95); MPV 10.7 fL (8.0-11.0); Monocytes % 5.3; Platelet Count 285 10^3/uL (130-400); RBC 5.11 10^6/uL (3.93-5.22); RDW-SD 42.5 fL; WBC 10.07 10^3/uL (4.4-10.8)
[2023-11-17 15:36] LABS: ALT 39 U/L (14-59); AST 21 U/L (15-37); Albumin 3.5 g/dL (3.4-5.0); Alkaline Phosphatase 86 U/L (46-116); Anion Gap 8.1 mmol/L (3-11); BUN 14 mg/dL (7-18); Bilirubin, Total 0.4 mg/dL (0.2-1.0); CO2 28.9 mmol/L (21.0-32.0); CREATININE 0.9 mg/dL (0.55-1.02); Calcium 9.4 mg/dL (8.5-10.1); Chloride 107 mmol/L (98-107); Estimated GFR 82.88 (mL/min/1.73m2); Glucose 101 mg/dL (74-106); Potassium 4.2 mmol/L (3.5-5.1); Sodium 144 mmol/L (136-145)
== END 2023-11-17 19:06 | disposition home or self-care (01) ==
LOC: NCHCN 19:05
PROVIDERS: PCP Nurse Practitioner Family; Referring Provider Family Medicine; Visit Provider Family Medicine
DX: R22.1 Localized swelling, mass and lump, neck (principal)
CPT/HCPCS: 80053; 85025

== ENCOUNTER 2023-12-01 18:29 | Outpatient (REF) | payer OTHER, SELFPAY ==
[2023-12-03 22:59] LABS: Campylobacter PCR Negative (Negative); Salmonella PCR Negative (Negative); Shiga Toxin PCR Negative (Negative); Shigella/Enteroinvasive Ecoli Negative (Negative)
== END 2023-12-01 18:30 | disposition home or self-care (01) ==
LOC: LBN 18:29
PROVIDERS: PCP Nurse Practitioner Family; Visit Provider Physician Assistant Medical
DX: R19.7 Diarrhea, unspecified (principal)
CPT/HCPCS: 87329; 87493; 87505; 87177

== ENCOUNTER 2024-02-25 14:46 | Emergency (ER) | payer OTHER, SELFPAY ==
[2024-02-25 14:48] VITALS: BP 168/84; PULSE 95; RESP 14; TEMP 36.2; O2SAT 98
[2024-02-25] MEDS: Fluorescein STRIPS 100/BOX 1 MG OP (15:13)
--- NOTE | 2024-02-25 15:29 | DI.CT_ITS ---
Exam(s) CT ORBITS W EXAM: CT ORBITS W CLINICAL HISTORY: left orbital pain, lateral and upward gaze pain. TECHNIQUE: Imaging Protocol: Axial computed tomography images with coronal and sagittal reformatted images were created and reviewed. No IV contrast COMPARISON: CT SINUS CT WITHOUT CONTRAST from 04/09/2018 FINDINGS: MAXILLOFACIAL CT SCAN: There is no evidence of facial fractures nor fluid the visualized paranasal sinuses. There is no roselia dence of orbital blowout fracture. Orbits: No exophthalmos nor enophthalmos. No evidence of dysconjugate gaze. Lacrimal glands appear unremarkable. No abnormalities evident within the globes and anterior chamber s. Retro conal compartments appear unremarkable. Extraocular muscles appear symmetrical. Optic ner ves appear unremarkable. Paranasal sinuses are clear. No mucosal thickening nor fluid levels. IMPRESSION: No evidence of facial bone fractures nor orbital fractures. No abnormal soft tissue findings in the orbits. RADIATION DOSE DELIVERED: 261.56mGy.cm Total DLP DATA REPOSITORY: All CT scans at this facility are submitted to the National Radiology Data Registry (NRDR) Dose Index Registry (DIR) with the [employer] (ACR). RADIATION OPTIMIZATION: All CT scans at this facility use at least one of these dose optimization te chniques: automated exposure control; mA and/or kV adjustment per patient size (includes targeted exa ms where dose is matched to clinical indication); or iterative reconstruction.
[2024-02-25 15:40] LABS: Abs Immature Grans 0.02 10^3/uL (0.0-0.06); Absolute Basophil Count 0.05 10^3/uL (0.0-0.2); Absolute Eosinophil Count 0.15 10^3/uL (0.0-0.7); Absolute Lymphocyte Count 3.55 10^3/uL (1.2-3.4); Absolute Monocyte Count 0.61 10^3/uL (0.1-0.8); Absolute Neutrophil Count 7.33 10^3/uL (1.2-6.7); Basophils % 0.4 %; Eosinophils % 1.3 %; HCT 44.8 % (36.0-46.0); HGB 14.4 g/dL (11.2-15.7); Immature Grans % 0.2 %; Lymphocytes % 30.3 %; MCH 28.6 pg (27.0-33.0); MCHC 32.1 % (32.0-36.0); MCV 89 fL (80-95); MPV 9.2 fL (8.0-11.0); Monocytes % 5.2 %; Neutrophils % 62.6 %; Platelet Count 312 10^3/uL (130-400); RBC 5.03 10^6/uL (3.93-5.22); RDW 13.2 % (11.7-14.6); RDW-SD 43.2 fL; WBC 11.71 10^3/uL (4.4-10.8)
[2024-02-25 15:41] LABS: ESR 24 mm/hr (0-20)
[2024-02-25] MEDS: Normal Saline - Diluent 50 ML VIAL IJ (15:45)
[2024-02-25] MEDS: Omnipaque 350 MG/ML 100 ML BTL IJ (15:46)
[2024-02-25] MEDS: Normal Saline Flush 10 ML SYR IVP (15:47)
--- NOTE | 2024-02-25 15:47 | ED.GENADUL_ITS ---
Discharge Plan Disposition Patient Disposition: Home Discharge Details Clinical Impression: Acute left eye pain Primary Care Provider: GABRIEL FLOREZ ED Provider: Shell Bunch Home Meds and New Rx's Prescriptions: Continued fluticasone propionate [Flonase Allergy Relief] 50 mcg/actuation spray,suspension 2 spray intranasal DAILY Qty: 16 0RF Rx Instructions: administer into each nostril montelukast [Singulair] 10 MG tablet 10 mg PO DAILY Qty: 90 ergocalciferol (vitamin D2) PO DAILY acetaminophen [Tylenol Extra Strength] 500 mg tablet 500 mg PO Q6H PRN levothyroxine 25 mcg capsule 25 mcg PO DAILY cetirizine 10 mg tablet 10 mg PO DAILY PRN albuterol sulfate [ProAir HFA] 90 mcg/actuation HFA aerosol inhaler 2 puff inhalation Q6H PRN ibuprofen 600 MG tablet 600 mg PO Q6H PRNQty: 20 0RF Discharge Instructions Additional Instructions: You have an appointment tomorrow with Dr Arthur at [facility] ophthalmology. This is located at [facility] at [address] [place] [address] Center , fourth floor student union consultant for be in [facility]. The phone number is [phone]. Please be sure to arrive at least 15 minutes early for your appointment. Call if you are going to be late or need to reschedule. You may use Tylenol ibuprofen for discomfort as needed. Return to emergency care if you develop vision change/double vision/vision loss, fevers, new severe headache, chest pain/ difficulty breathing, or if you are very worried and need to be rechecked again immediately Discharge Data Discharge Date/Time-TO BE ENTERED AT DEPARTURE: 02/25/24 18:13 HPI General Date/Time Provider Initiated Documentation: 02/25/24 14:54 . HPI Narrative: This 39-year-old female with history of depression, asthma presents with report of left orbital pain. She states her symptoms started on of this week. She states at the beginning of the months she had some right dental pain. She took doxycycline for 10 days. When the doxycycline was completed she had a dental extraction around 29 January on the right side. She placed a nicotine patch and approximately 4 days later had a diffuse pruritic rash. She was seen by a doctor and placed on prednisone and for 7 days which she completed approximately a week and a half prior to arrival today. She states the rash is since resolved and she is not currently taking steroids. She states that she does not have any vision change or tearing from the eye however she has terrible pain with any lateral or upward eye movement on the left side. She denies any history of similar symptoms in the past. She denies any known trauma to the affected area. She does wear corrective lenses but denies any contact lens use. She has not been evaluated by ophthalmology. She smokes tobacco and denies any illicit substance use. She did take Tylenol prior to arrival today. She stopped taking her thyroid medication approximately a week ago. Related Data Home Medications Medication Instructions Recorded Confirmed montelukast 10 mg tablet 10 mg PO DAILY #90 tab-caps 05/07/15 02/25/24 (Singulair) ibuprofen 600 mg tablet 600 mg PO Q6H PRN #20 tabs 02/01/17 02/25/24 acetaminophen 500 mg tablet 500 mg PO Q6H PRN 04/10/23 02/25/24 (Tylenol Extra Strength) cetirizine 10 mg tablet 10 mg PO DAILY PRN 04/10/23 02/25/24 ergocalciferol (vitamin D2) PO DAILY 04/10/23 05/01/23 levothyroxine 25 mcg capsule 25 mcg PO DAILY 04/10/23 02/25/24 fluticasone propionate 50 2 spray intranasal DAILY #16 grams 05/01/23 02/25/24 mcg/actuation nasal spray,suspension (Flonase Allergy Relief) albuterol sulfate 90 mcg/actuation 2 puff inhalation Q6H PRN 01/02/24 02/25/24 aerosol inhaler (ProAir HFA) Previous Rx's Medication Instructions Recorded ibuprofen 600 mg tablet 600 mg PO Q6H PRN #20 tabs 02/01/17 fluticasone propionate 50 2 spray intranasal DAILY #16 grams 05/01/23 mcg/actuation nasal spray,suspension (Flonase Allergy Relief) Allergies Allergy/AdvReac Type Severity Reaction Status Date / Time amoxicillin Allergy Intermediate Skin Rash Unverified 02/25/24 14:56 latex Allergy Intermediate Skin Rash Unverified 02/25/24 14:56 Penicillins Allergy Intermediate Skin Rash Unverified 02/25/24 14:56 azithromycin [From Zithromax] Allergy Unknown Unknown Unverified 02/25/24 14:56 lidocaine Allergy Unknown Unknown Unverified 02/25/24 14:56 Tetanus Vaccines and Toxoid Allergy Unknown Unknown Unverified 02/25/24 14:56 [Tetanus Vaccines & Toxoid] tramadol Allergy Unknown Unknown Unverified 02/25/24 14:56 Egg Derived AdvReac Intermediate Nausea Unverified 02/25/24 14:56 lactose AdvReac Unknown Unverified 02/25/24 14:56 General Stated Complaint: EyeProblem MERRITT: 3 Exam Narrative Exam Narrative: Alert and oriented, pupils equal round reactive to light and accommodation, no proptosis, no conjunctival or scleral injection, no fluorescein uptake, intraocular pressure 17 on the left 17.6 on the right, extraocular muscles are intact, however patient reports severe pain with left lateral and upper movement. No proptosis, no temporal artery discomfort with palpation or visible edema, no primary or pulsatile mass, no respiratory distress, cardiac rate rhythm regular, no significant thyromegaly. cn2-12 intact, ambulatory with steady gait Course Vital Signs Vital signs: Vital Signs Temperature 36.2 C L 02/25/24 14:48 Pulse 95 H 02/25/24 14:48 Respiratory Rate 14 02/25/24 14:48 Blood Pressure 168/84 H 02/25/24 14:48 Pulse Oximetry 98 02/25/24 14:48 Temperature 36.2 C L 02/25/24 14:48 Temperature Source Temporal Artery Scan 02/25/24 14:48 Pulse 95 H 02/25/24 14:48 Respiratory Rate 14 02/25/24 14:48 Respiratory Effort Normal, Non-Labored 02/25/24 14:50 Blood Pressure 168/84 H 02/25/24 14:48 Blood Pressure Position Sitting 02/25/24 14:48 Pulse Oximetry 98 02/25/24 14:48 Oxygen Delivery Method Room Air 02/25/24 14:48 Oxygen Flow Rate 0 02/25/24 14:48 Pain Level 10 02/25/24 14:50 Lab/Test Results Lab/Test Results: Laboratory Tests Range/Units 02/25/24 15:35 WBC (4.4-10.8) 10^3/uL 11.71 H RBC (3.93-5.22) 10^6/uL 5.03 Hgb (11.2-15.7) g/dL 14.4 Hct (36.0-46.0) % 44.8 MCV (80-95) fL 89 MCH (27.0-33.0) pg 28.6 MCHC (32.0-36.0) % 32.1 RDW (11.7-14.6) % 13.2 Plt Count (130-400) 10^3/uL 312 MPV (8.0-11.0) fL 9.2 Immature Gran % % 0.2 Neutrophils % % 62.6 Lymphocytes % % 30.3 Monocytes % % 5.2 Eosinophils % % 1.3 Basophils % % 0.4 Nucleated RBC % (0.0-0.3) % 0.0 Absolute Neutrophils (1.2-6.7) 10^3/uL 7.33 H Absolute Lymphocytes (1.2-3.4) 10^3/uL 3.55 H Absolute Monocytes (0.1-0.8) 10^3/uL 0.61 Absolute Eosinophils (0.0-0.7) 10^3/uL 0.15 Absolute Basophils (0.0-0.2) 10^3/uL 0.05 Medical Decision Making 39-year-old female presenting with left ocular pain, suspect extraocular muscle pain. No proptosis and relatively benign appearing ophthalmologic exam. Visual acuity 20/25 left eye 20/20 right eye uncorrected. No fluorescein uptake. Normal eye pressures bilaterally. CT was ordered to exclude retrobulbar abscess. Care transitioned to Shell, nurse practitioner pending CT possible ophthalmological consultation. Quality:[facility] Health Related Social Needs: No Data to Display PFSH All Active Problems (Updated 02/25/24 @ 18:03 by Shell Brady) Acute left eye pain (Acute) Localized enlarged lymph nodes (Acute) Ear itch (Acute) Sinus pressure (Acute) HPV exposure (Acute) Pap 12/2022, normal, positive high risk HPV. Repeat Pap 1 year. If persistent positive HPV, recommend colposcopy. Vapes nicotine containing substance (Acute) History of endometriosis (Acute) Well woman exam with routine gynecological exam (Acute) Pain of left heel (Acute) Heel spur (Acute) Patellar tendinitis of right knee (Acute) Internal derangement of right knee (Acute) Anxiety (Acute) Asthma (Acute) Chronic abdominal pain (Acute) Depression (Acute 03/16/15) Hidradenitis suppurativa (Acute) Previous resection in the axilla and groin Obesity (Acute) Medical History (Updated 02/25/24 @ 18:03 by Shell Brady) Derangement of right knee Diarrhea Cervical lymphadenopathy Jaw pain Neck swelling Low back pain Dehydration HLD (hyperlipidemia) Screening for osteoporosis Early menopause Cigarette smoker Chronic sinusitis Adjustment disorder with mixed anxiety and depressed mood Grief reaction At risk for sleep apnea Fatty infiltration of liver Morbid obesity Asthma, intermittent Hypothyroidism Fatigue Lumbar back pain with radiculopathy affecting lower extremity GERD (gastroesophageal reflux disease) Vitamin D deficiency Fatty liver disease, nonalcoholic Blood glucose elevated Plantar fasciitis Surgical History (Updated 01/02/24 @ 10:13 by Leny Urrutia RN) Acquired absence of both cervix and uterus Tonsillectomy 16 YRS OLD Talha Fundoplication (~2006) HYSTERECTOMY (~2006) ENDOMETRIOSIS/cervix still intact Family History (Updated 01/02/24 @ 10:17 by Leny Urrutia RN) Mother Personal history of malignant neoplasm SKIN Hypoglycemia Grandmother Heart disease Malignant neoplasm of breast with BRCA1 gene mutation Social History Smoking/Tobacco Use Status: Former Tobacco Use Smoking risk assessment performed?: Yes Alcohol Intake: never Drug use: Never Substance use type: does not use Housing: apartment Do you feel safe at home: Yes Do you feel safe in your relationship?: Yes Sign Out Sign Out Data: Sign Out Comment: pending ct orbit, labs, and disposition Last updated by Chantal Keys PA at 02/25/24 15:58
[2024-02-25 15:56] LABS: C-Reactive Protein 1.12 mg/dL (<or=0.5)
[2024-02-25 16:07] LABS: ALT 43 U/L (14-59); AST 19 U/L (15-37); Albumin 3.7 g/dL (3.4-5.0); Alkaline Phosphatase 81 U/L (46-116); Anion Gap 10.3 mmol/L (3-11); BUN 14 mg/dL (7-18); Bilirubin, Total 0.3 mg/dL (0.2-1.0); CO2 26.7 mmol/L (21.0-32.0); CREATININE 0.9 mg/dL (0.55-1.02); Calcium 9.5 mg/dL (8.5-10.1); Chloride 106 mmol/L (98-107); Estimated GFR 82.37 (mL/min/1.73m2); Glucose 95 mg/dL (74-106); Potassium 3.8 mmol/L (3.5-5.1); Sodium 143 mmol/L (136-145); TSH (W/Ref FT4) 4.21 uIU/mL (0.36-3.74); Total Protein 7.8 g/dL (6.4-8.2)
[2024-02-25 16:24] LABS: FREE T4 0.79 ng/dL (0.76-1.46)
--- NOTE | 2024-02-25 16:30 | RT.EKG_ITS ---
APPROVED REPORT Exam: Resting ECG Reason for Exam: episodes of CP Patient Location: E HR:66 bpm ECG Measurements Heart Rate 66 AXIS DE 172 P 13 QRSd 86 QRS 25 QT 419 T 30 QTc 439 Conclusion Sinus rhythm...normal P axis, V-rate 60- 99
--- NOTE | 2024-02-25 16:30 | DI.VRAD_ITS ---
PROCEDURE INFORMATION: Exam: CT Orbits With Contrast Exam date and time: 02/25/2024 3:48 PM Age: 39 years old Clinical indication: Other: Left orbital pain, lateral and upward gaze pain TECHNIQUE: Imaging protocol: Computed tomography of the orbits with contrast. Contrast material: OMNIPAQUE 350; Contrast volume: 100 ml; Contrast route: INTRAVENOUS (IV); COMPARISON: SINUS CT WITHOUT CONTRAST 04/09/2018 2:53 PM FINDINGS: Paranasal sinuses: Normal. No air-fluid levels. Orbital cavities: Orbits are normal. Globes are unremarkable. Dental: Interval extraction of tooth 2 and tooth 15. Bones/joints: No acute fracture. Soft tissues: No significant facial soft tissue swelling. IMPRESSION: No acute findings. Dictated and Authenticated by: Uli Sommer MD. Ordering:RICKIE Cornejo MD
--- NOTE | 2024-02-25 16:45 | ED.PROG_ITS ---
Date of service: 02/25/24 Time of Service: 16:00 Medical Decision Making Handoff report received from Chantal CROWLEY, daytime MIGUELINA; please see her note for full history and physical exam. I did independently obtain an abbreviated history and physical exam the patient as well. Jennifer is a 39-year-old female who presented to the emergency department today for evaluation of left eye pain which started 3 days ago after waking up from a nap. She reports that her eyes comfortable when she is looking straight ahead, but she has sharp eye pain with lateral gaze. She also has eye pain with upward gaze and palpation of the eyelid. She also reports some discomfort around the outer aspect of her eye/jew region. She reports some sensitivity to light, denies vision change. Denies fever/chills, unusual headache, recent viral illness, dental pain. She did recently complete a course of prednisone for skin writing disease, during which time she was not taking her levothyroxine 25 mcg daily (for a couple weeks). Denies other neurological complaints. She does report that over the last week she has had 3 episodes of chest pressure, which she feels like her chest is being squeezed, lasting approximately 15 minutes at a time. This is not accompanied by any other symptoms. Last episode was approximately 4 days ago. Physical exam reassuring. PERRL, EOMs intact. No abnormalities noted to external ocular structures. No obvious abnormalities noted on funduscopic exam. Orbital CT performed, no acute abnormalities noted. I independently interpreted the following tests: EKG reassuring, normal sinus rhythm with rate 66. No changes consistent with acute ischemia. Chest x-ray reassuring, no obvious infiltrates or cardiomegaly noted. CBC notable for mild leukocytosis, 11.71. CRP and sed rate both slightly elevated. CMP unremarkable. TSH is elevated, though free T4 is within normal range. Discussed case with Dr.Divy Arthur, job site superintendent at [facility]. Reviewed patient presentation, physical exam findings, labs, and CT findings. Likely differentials include orbital myositis, inflammatory processes/inflammatory syndrome, scleritis, uveitis. Recommends APAP and ibuprofen. Added on labs per specialist recommendation, including QuantiFERON, Lyme, syphilis, and chest x- ray. Patient is appropriate for outpatient mgmt with close f/u; she has an appointment with Dr. Arthur tomorrow at 2 PM at the eye clinic at [facility]. While in the emergency department Jennifer received Toradol for pain control; she reports this did not provide much relief at all. Reviewed discharge instructions with patient, including red flags indicate need for return to emergency care and follow-up instructions. She is agreeable with plan of care Imaging Data Radiologic Study: Radiologist's impression: PROCEDURE INFORMATION: Exam: CT Orbits With Contrast Exam date and time: 02/25/2024 3:48 PM Age: 39 years old Clinical indication: Other: Left orbital pain, lateral and upward gaze pain TECHNIQUE: Imaging brenna col: Computed tomography of the orbits with contrast. Contrast material: OMNIPAQUE 350; Contrast volume: 100 ml; Contrast route: INTRAVENOUS (IV); COMPARISON: SINUS CT WITHOUT CONTRAST 04/09/2018 2:53 PM FINDINGS: Paranasal sinuses: Normal. No air-fluid levels. Orbital cavities: Orbits are normal. Globes are unremarkable. Dental: Interval extraction of tooth 2 and tooth 15. Bones/joints: No acute fracture. Soft tissues: No significant facial soft tissue swelling. IMPRESSION: No acute findings Quality:[facility] Health Related Social Needs: No Data to Display Sign Out Sign Out Data: Sign Out Comment: pending ct orbit, labs, and disposition Last updated by Chantal Keys PA at 02/25/24 15:58 Discharge Plan Disposition Patient Disposition: Home Discharge Details Clinical Impression: Acute left eye pain Primary Care Provider: GABRIEL FLOREZ ED Provider: Shell Bunch Home Meds and New Rx's Prescriptions: Continued fluticasone propionate [Flonase Allergy Relief] 50 mcg/actuation spray,suspension 2 spray intranasal DAILY Qty: 16 0RF Rx Instructions: administer into each nostril montelukast [Singulair] 10 MG tablet 10 mg PO DAILY Qty: 90 ergocalciferol (vitamin D2) PO DAILY acetaminophen [Tylenol Extra Strength] 500 mg tablet 500 mg PO Q6H PRN levothyroxine 25 mcg capsule 25 mcg PO DAILY cetirizine 10 mg tablet 10 mg PO DAILY PRN albuterol sulfate [ProAir HFA] 90 mcg/actuation HFA aerosol inhaler 2 puff inhalation Q6H PRN ibuprofen 600 MG tablet 600 mg PO Q6H PRNQty: 20 0RF Discharge Instructions Additional Instructions: You have an appointment tomorrow with Dr Arthur at [facility] ophthalmology. This is located at [facility] , fourth floor legal secretary receptionist for be in [facility]. The phone number is [phone]. Please be sure to arrive at least 15 minutes early for your appointment. Call if you are going to be late or need to reschedule. You may use Tylenol ibuprofen for discomfort as needed. Return to emergency care if you develop vision change/double vision/vision loss, fevers, new severe headache, chest pain/ difficulty breathing, or if you are very worried and need to be rechecked again immediately
--- NOTE | 2024-02-25 17:00 | DI.RAD_ITS ---
Exam(s) XR CHEST 2V PA LATERAL EXAM: XR CHEST 2V PA LATERAL CLINICAL HISTORY: per optho, r/o pulm nodules. TECHNIQUE: 2D digital imaging was performed. COMPARISON: No exams were available for comparison FINDINGS: 2 views: Heart size is normal. The mediastinum is not widened. Lungs are clear. No infiltrates nor pleural effusions. IMPRESSION: No acute pulmonary findings. DATA REPOSITORY: RADIATION DOSE DELIVERED:
[2024-02-25] MEDS: Ketorolac 15 MG/ML VIAL IVP (17:06)
--- NOTE | 2024-02-25 17:38 | DI.VRAD_ITS ---
PROCEDURE INFORMATION: Exam: XR Chest Exam date and time: 02/25/2024 5:19 PM Age: 39 years old Clinical indication: Other: Per optho, R/O pulm nodules TECHNIQUE: Imaging protocol: Radiologic exam of the chest. Views: 2 views. COMPARISON: CR CHEST 2 VIEWS PA,LAT 02/15/2018 10:59 AM FINDINGS: Lungs: Unremarkable. No consolidation. Pleural spaces: Unremarkable. No pleural effusion. No pneumothorax. Heart/Mediastinum: Unremarkable. No cardiomegaly. Bones/joints: Unremarkable. IMPRESSION: No acute findings. Dictated and Authenticated by: Uli Sommer MD. Ordering:ISAAC Goff MD
[2024-02-25 18:12] VITALS: BP 146/92; PULSE 74; RESP 18; TEMP 36.4; O2SAT 98
[2024-02-27 10:59] LABS: Lyme Ab w Rflx to Lyme Confirm Negative (Negative)
[2024-02-27 11:03] LABS: Syphilis Serology (RPR) Negative (Negative)
[2024-02-27 12:28] LABS: TB Interpretation Negative (Negative); TB1 Ag minus Nil 0.19 IU/ml; TB2 Ag minus Nil 0.17 IU/mL
== END 2024-02-25 18:13 | disposition home or self-care (01) ==
PROVIDERS: Physician Assistant; Emergency Provider Nurse Practitioner Family; PCP Nurse Practitioner Family
DX: H57.12 Ocular pain, left eye (principal); Z87.891 Personal history of nicotine dependence
CPT/HCPCS: 00123; 36415; 80053; 85652; 93005; 96374; 99285; 70481; 71046; 84439; 84443; 85025; 86140; 86480; 86592; 86618; 93010; 99284; J1885; J3490

== ENCOUNTER 2024-03-08 12:08 | Outpatient (REF) | payer OTHER, SELFPAY ==
--- NOTE | 2024-03-08 11:30 | PAPFT_PTH ---
PATIENT: Jennifer Valencia LOC: [facility] U#:[id number] AGE/SX: 39/F ROOM: RE03/08/[address]: Lalita Rodriguez MD : 1985 BED: DIS: 03/08/2024 SPEC #: [id number] RECD: 03/08/24 17:37 STATUS: ANTONI REIlya #: [id number] GLENN: 03/08/24 11:[address]: Lalita Rodriguez DEPT: [facility] Cytology RECD BY: Chantal Romo ENTERED: 03/08/24 17:37 SP TYPE: PAPFT DENA DR: GABRIEL FLOREZ NP Tissues: 1 - CX/ENDOCX FOR PAP SMEARS Procedures: PAP THIN PREP/UVM Screening HPV DNA PROBE Comments: [id number] (HPV 16 & 18/45) (CHLAMYDIA/GC)
[2024-03-12 14:36] LABS: Chlamydia Result Negative (Negative); GC Result Negative (Negative)
== END 2024-03-08 12:09 | disposition home or self-care (01) ==
LOC: LBN 12:08
PROVIDERS: PCP Nurse Practitioner Family; Visit Provider Obstetrics & Gynecology
DX: Z01.419 Encounter for gynecological examination (general) (routine) without abnormal findings (principal)
CPT/HCPCS: 87491; 87591; 88142; 87624

== ENCOUNTER 2024-03-08 13:20 | Outpatient (CLI) | payer OTHER, SELFPAY ==
[2024-03-11 10:55] LABS: HIV-1/2 Ag & Ab Screen Negative (Negative)
[2024-03-11 12:53] LABS: HBs Antibody, Qual Positive (See Note); HBs Antibody, Quant 30.2 mIU/mL (See Note); Hepatitis B Core Antibody Negative (Negative); Hepatitis B surface Ag Negative (Negative); Hepatitis C Ab w Rflx HCV PCR Negative (Negative)
== END 2024-03-08 13:21 | disposition home or self-care (01) ==
PROVIDERS: PCP Nurse Practitioner Family; Visit Provider Obstetrics & Gynecology
DX: Z11.3 Encounter for screening for infections with a predominantly sexual mode of transmission (principal)
CPT/HCPCS: 36415; 86704; 86706; 86803; 87340; 87389

== ENCOUNTER → 2024-03-29 00:22 | Outpatient (CLI) | payer OTHER, SELFPAY ==
--- NOTE | 2024-03-29 | DI.MRI_ITS ---
Exam(s) MR BRAIN ORBIT FACE NECK WO/W EXAM: MR BRAIN ORBIT FACE NECK WO/W CLINICAL HISTORY: Family h/o MS, Z82.0; photosensitivity, L56.8; pain of lt orbit, H57.12 TECHNIQUE: Multiplanar multisequence MRI of the brain was performed. COMPARISON: CT CT ORBITS W from 02/25/2024 FINDINGS: VENTRICLES AND EXTRA AXIAL SPACES: Normal in size and morphology for the patient's age. HEMORRHAGE: None. CEREBRAL PARENCHYMA: No focus of restricted diffusion to suggest acute infarct. No space-occupying le cheng identified. Multiple abnormal small scattered foci of high signal in the white matter of both c erebral hemispheres. No corpus callosum lesions identified. New lesions are enhancing. MIDLINE SHIFT: None. BRAINSTEM/CEREBELLUM: Normal. CALVARIUM: Normal. VISUALIZED PARANASAL SINUSES/MASTOIDS: Clear. ORBITS: The anterior and posterior chambers of the globes are intact. The retrobulbar fat is unremark able. Extraocular muscles are unremarkable. OPTIC NERVES: The intracranial and extracranial portions of the optic nerves are within normal limits . Optic chiasm is within normal limits. No MRI evidence of optic neuritis identified. SOFT TISSUES: The superior opthalmic veins are unremarkable. Remaining soft tissues are unremarkable. IMPRESSION: Multiple small high signal foci scattered in the white matter both cerebral hemispheres. Findings ar e suspicious for multiple sclerosis. No enhancing lesions. The orbits are unremarkable. DATA REPOSITORY:
[2024-03-29] MEDS: Normal Saline Flush 10 ML SYR IVP (12:52)
[2024-03-29] MEDS: Gadoterate meglumine 20 ML VIAL IVP (12:53)
== END ==
PROVIDERS: PCP Nurse Practitioner Family; Visit Provider Psychiatry & Neurology Psychiatry
DX: H57.12 Ocular pain, left eye (principal); L56.8 Other specified acute skin changes due to ultraviolet radiation; Z82.0 Family history of epilepsy and other diseases of the nervous system
CPT/HCPCS: 70553; 70543

== ENCOUNTER → 2024-04-12 00:03 | Outpatient (CLI) | payer OTHER, SELFPAY ==
--- NOTE | 2024-04-12 07:00 | DI.MAMMO_ITS ---
Exam(s) MAMMO SCREENING EXAM: MAMMO SCREENING CLINICAL HISTORY: screening,z12.31 TECHNIQUE: Bilateral full field digital CC and MLO mammographic images were obtained with 3D tomosyn thesis and utilizing computer aided detection (CAD). COMPARISON: Available for comparison. FINDINGS: Masses/Architectural Distortion: None seen. Microcalcifications: No suspicious pleomorphic-type are seen. Skin Thickening/Nipple Retraction: None. IMPRESSION: 1. No significant interval change with no specific features of malignancy noted. 2. Unless there is more urgent need, screening mammography is recommended, as per [place] [employer] guidelines. BI-RADS Category 1 - Negative Breast Density - Category A - Almost entirely fatty Breast density category C or D implies that the patient has dense breast tissue. Dense breast tissue is very common and is not abnormal but dense breast tissue can make it harder to find cancer on a ma mmogram. Also, dense breast tissue may increase their breast cancer risk. This information about the result of the mammogram report was provided to the patient to raise their awareness. Use this report when you speak with the patient about their risks for breast cancer, which includes their family hist ory. At that time, you may recommend for more screening tests (Ultrasound or MRI) as they might be us eful based on their risk. A negative radiographic report should not delay biopsy if a dominant or clinically suspicious mass is present. Up to ten percent of cancers are not identified on mammography. A negative report may reinforce clinical impression. Adenosis and dense breasts may obscure an underlying neoplasm. False positive reports average 6 to 10%. Patient will receive a letter notifying them of these results.
== END ==
PROVIDERS: PCP Nurse Practitioner Family; Visit Provider Obstetrics & Gynecology
DX: Z12.31 Encounter for screening mammogram for malignant neoplasm of breast (principal)
CPT/HCPCS: 77063; 77067

== ENCOUNTER 2024-04-19 13:52 | Outpatient (REF) | payer OTHER, SELFPAY ==
[2024-04-22 12:11] LABS: Chlamydia Result Negative (Negative); GC Result Negative (Negative)
== END 2024-04-19 13:53 | disposition home or self-care (01) ==
LOC: LBN 13:52
PROVIDERS: PCP Nurse Practitioner Family; Visit Provider Obstetrics & Gynecology
DX: Z11.3 Encounter for screening for infections with a predominantly sexual mode of transmission (principal)
CPT/HCPCS: 87491; 87591

== ENCOUNTER 2024-07-26 00:38 | Outpatient (CLI) | payer OTHER, SELFPAY ==
--- NOTE | 2024-07-26 07:15 | DI.MRI_ITS ---
Exam(s) MR THORACIC SPINE WO/W EXAM: MR THORACIC SPINE WO/W CLINICAL HISTORY: ? demyelination,ABNL BRAIN MRI,R90.89. TECHNIQUE: Multiplanar multisequence MRI of the Thoracic spine was performed. CONTRAST MATERIAL: IV Contrast: 20 mL of Dotarem contrast administered. COMPARISON: No exams were available for comparison FINDINGS: Bones: The vertebral body heights are well maintained. Small endplate osteophytes projecting mainly anteriorly in the lower thoracic region. Mild facet degenerative changes also present. No neural fo raminal narrowing or central canal stenosis. Alignment is satisfactory. The signal characteristics a re unremarkable. Cord: The thoracic cord is normal size and signal intensity. No intrinsic cord lesion is present. Discs: No disc herniation or significant disc bulging. Soft tissues: Normal. There is no evidence of suspicious enhancement. IMPRESSION: Normal cord signal. No evidence of demyelinating lesions. Mild degenerative disc changes, without significant disc bulging, neural foraminal narrowing or centr al canal stenosis. DATA REPOSITORY:
--- NOTE | 2024-07-26 07:15 | DI.MRI_ITS ---
Exam(s) MR CERVICAL SPINE WO/W EXAM: MR CERVICAL SPINE WO/W CLINICAL HISTORY: ? demyelination,ABNL BRAIN MRI,R90.89 TECHNIQUE: Multiplanar multisequence MRI of the cervical spine was performed. CONTRAST MATERIAL: IV Contrast: 20 ML of Dotarem contrast administered. COMPARISON: No exams were available for comparison FINDINGS: BONES: Vertebral body heights are maintained. Intervertebral disc spaces are normal. Alignment is nor mal. Bone marrow signal intensity is within normal limits. CERVICAL CORD: Craniovertebral junction is unremarkable. The cervical cord is normal size and signal intensity. No lesion is present. SOFT TISSUES: Unremarkable. ENHANCEMENT: No suspicious enhancement identified. C2-3: No disc herniation or bulge is identified. No significant central spinal canal or neural forami nal stenosis. C3-4: No disc herniation or bulge is identified. No significant central spinal canal or neural forami nal stenosis C4-5: No disc herniation or bulge is identified. No significant central spinal canal or neural forami nal stenosis C5-6: No disc herniation. Minimal disc bulging. No significant central spinal canal or neural guillermo inal stenosis C6-7: No disc herniation. Minimal disc bulging. No significant central spinal canal or neural guillermo inal stenosis C7-T1: No disc herniation or bulge is identified. No significant central spinal canal or neural guillermo inal stenosis IMPRESSION: Mild disc bulging at C5-6 and C6-7. Normal cord signal. No evidence of demyelinating disease. DATA REPOSITORY:
[2024-07-26] MEDS: Gadoterate meglumine 20 ML VIAL IVP (13:28)
[2024-07-26] MEDS: Normal Saline Flush 10 ML SYR IVP (13:29)
== END 2024-07-26 00:58 ==
LOC: DI 00:38
PROVIDERS: PCP Nurse Practitioner Family; Visit Provider Psychiatry & Neurology Neurology
DX: R90.89 Other abnormal findings on diagnostic imaging of central nervous system (principal); M50.122 Cervical disc disorder at C5-C6 level with radiculopathy
CPT/HCPCS: 72156; 72157

== ENCOUNTER 2024-11-01 00:14 | Outpatient (CLI) | payer OTHER, SELFPAY ==
--- NOTE | 2024-11-01 | DI.RAD_ITS ---
Exam(s) XR SACROILIAC JOINTS EXAM: XR SACROILIAC JOINTS CLINICAL HISTORY: Low back pain, M54.50. TECHNIQUE: 2D digital imaging was performed. COMPARISON: No exams were available for comparison FINDINGS: 3 views Sacroiliac joints appear unremarkable with no radiographic evidence of sacroiliitis nor ankylosis of the SI joints. There are no osseous lesions. No obvious sacral fractures. IMPRESSION: No significant radiographic findings in the sacroiliac joints. DATA REPOSITORY: RADIATION DOSE DELIVERED:
--- NOTE | 2024-11-01 | DI.RAD_ITS ---
Exam(s) XR SACRUM COCCYX EXAM: XR SACRUM COCCYX CLINICAL HISTORY: Low back pain, M54.50. TECHNIQUE: 2D digital imaging was performed. COMPARISON: CR XR SACROILIAC JOINTS from 11/01/2024 FINDINGS: 3 views No evidence of sacral fracture nor obvious coccyx fracture. Bone density normal. No sacral lesions evident. The sacroiliac joints appear unremarkable. On the lateral view there is some mild disc space narrowing at L5-S1 level. IMPRESSION: No significant osseous findings in the sacrum. DATA REPOSITORY: RADIATION DOSE DELIVERED:
== END 2024-11-01 00:34 ==
LOC: DI 00:14
PROVIDERS: PCP Nurse Practitioner Family; Visit Provider Nurse Practitioner Family
DX: M54.50 Low back pain, unspecified (principal)
CPT/HCPCS: 72202; 72220

== ENCOUNTER 2024-11-01 13:41 | Outpatient (CLI) | payer OTHER, SELFPAY ==
[2024-11-01 11:09] LABS: Abs Immature Grans 0.02 10^3/uL (0.0-0.06); Absolute Basophil Count 0.04 10^3/uL (0.0-0.2); Absolute Eosinophil Count 0.12 10^3/uL (0.0-0.7); Absolute Lymphocyte Count 1.52 10^3/uL (1.2-3.4); Absolute Monocyte Count 0.52 10^3/uL (0.1-0.8); Absolute Neutrophil Count 4.01 10^3/uL (1.2-6.7); Basophils % 0.6 %; Eosinophils % 1.9 %; HCT 46.7 % (36.0-46.0); Immature Grans % 0.3 %; Lymphocytes % 24.4 %; MCH 28.2 pg (27.0-33.0); MCHC 32.1 % (32.0-36.0); MCV 88 fL (80-95); MPV 9.2 fL (8.0-11.0); Monocytes % 8.3 %; Neutrophils % 64.5 %; Platelet Count 263 10^3/uL (130-400); RBC 5.32 10^6/uL (3.93-5.22); RDW 13.2 % (11.7-14.6); RDW-SD 43.1 fL; WBC 6.23 10^3/uL (4.4-10.8)
[2024-11-01 11:11] LABS: ESR 10 mm/hr (0-20)
[2024-11-01 11:49] LABS: COMMENT (LAB VIEW ONLY) 196.91 mg/dL; Microalb ug/mg Crea 4.1 ug/mg Cr
[2024-11-01 11:50] LABS: Iron 54 ug/dL (50-170); Total Iron Binding Capacity 345 ug/dL (250-450); Transferrin Sat 16 % (15-50)
[2024-11-01 11:53] LABS: ALT 39 U/L (14-59); AST 21 U/L (15-37); Albumin 3.7 g/dL (3.4-5.0); Alkaline Phosphatase 102 U/L (46-116); Anion Gap 6.9 mmol/L (3-11); BUN 12 mg/dL (7-18); Bilirubin, Total 0.42 mg/dL (0.2-1.0); CO2 29.1 mmol/L (21.0-32.0); CREATININE 0.9 mg/dL (0.55-1.02); Calcium 9.5 mg/dL (8.5-10.1); Chloride 106 mmol/L (98-107); Estimated GFR 82.37 (mL/min/1.73m2); Ferritin 103 ng/mL (8-252); Glucose 95 mg/dL (74-106); Potassium 4.4 mmol/L (3.5-5.1); Sodium 142 mmol/L (136-145); TSH (W/Ref FT4) 1.73 uIU/mL (0.36-3.74); Total Protein 7.4 g/dL (6.4-8.2); Vitamin B12 533 pg/mL (193-986)
[2024-11-01 12:01] LABS: C-Reactive Protein 1.36 mg/dL (<or=0.5)
[2024-11-01 17:58] LABS: Rheumatoid Factor <8.6 IU/mL (<12.0)
[2024-11-04 09:43] LABS: Cyclic Citrullinated Peptide <2.5 U/mL (<5.0)
[2024-11-04 15:29] LABS: ANA Interpretation Negative (Negative)
[2024-11-04 18:44] LABS: Tissue Transglutaminase Ab IgG 31.6 U/mL
== END 2024-11-01 13:42 | disposition home or self-care (01) ==
LOC: LBO 13:42
PROVIDERS: PCP Nurse Practitioner Family; Visit Provider Nurse Practitioner Family
DX: R53.83 Other fatigue (principal); G89.29 Other chronic pain; R51.9 Headache, unspecified; L29.9 Pruritus, unspecified
CPT/HCPCS: 36415; 80053; 85652; 86200; 86364; 82043; 82570; 82607; 82728; 83540; 83550; 84443; 85025; 86038; 86140; 86431

== ENCOUNTER 2025-01-21 18:37 | Outpatient (REF) | payer OTHER, SELFPAY ==
[2025-01-24 23:27] LABS: Calprotectin <50.0 mcg/g
== END 2025-01-21 18:38 | disposition home or self-care (01) ==
LOC: LBN 18:37
PROVIDERS: PCP Nurse Practitioner Family; Visit Provider Internal Medicine Gastroenterology
DX: R74.8 Abnormal levels of other serum enzymes (principal); K52.9 Noninfective gastroenteritis and colitis, unspecified
CPT/HCPCS: 83993

== ENCOUNTER 2025-03-20 14:36 | Outpatient (REF) | payer OTHER, SELFPAY ==
--- NOTE | 2025-03-20 14:30 | PAPFT_PTH ---
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
[2025-03-21 13:06] LABS: Chlamydia Result Negative (Negative); GC Result Negative (Negative)
== END 2025-03-20 14:37 | disposition home or self-care (01) ==
LOC: LBN 14:36
PROVIDERS: PCP Nurse Practitioner Family; Visit Provider Obstetrics & Gynecology
DX: Z12.4 Encounter for screening for malignant neoplasm of cervix (principal); Z11.8 Encounter for screening for other infectious and parasitic diseases
CPT/HCPCS: 87491; 87591; 88142; 87624

== ENCOUNTER 2025-07-11 03:08 | Outpatient (CLI) | payer OTHER, SELFPAY ==
--- NOTE | 2025-07-11 07:00 | DI.MRI_ITS ---
Exam(s) MR BRAIN WO EXAM: MR BRAIN WO CLINICAL HISTORY: clinically stable,MS,ABNL BRAIN MRI,R90.89 TECHNIQUE: Multiplanar multisequence MRI of the brain was performed. COMPARISON: MR MR BRAIN ORBIT FACE NECK WO/W from 03/29/2024 FINDINGS: VENTRICLES AND EXTRA AXIAL SPACES: Normal in size and morphology for the patient's age. MIDLINE SHIFT: None. CEREBRAL PARENCHYMA: No focus of restricted diffusion to suggest acute infarct. No space-occupying lesion identified. Numerous scattered foci high signal are noted in the white matter. The findings appear stable. Nodes restricted diffusion. No corpus callosum lesions. BRAINSTEM/CEREBELLUM: Normal. VISUALIZED PARANASAL SINUSES: Clear. MASTOIDS:Clear. Vasculature: Normal flow void. PITUITARY GLAND: Unremarkable. ORBITS: Unremarkable. IMPRESSION: Stable foci of high signal in the white matter consistent with patient's history of multiple sclerosis. DATA REPOSITORY:
== END 2025-07-11 03:28 ==
LOC: DI 03:08
PROVIDERS: PCP Nurse Practitioner Family; Visit Provider Psychiatry & Neurology Neurology
DX: R90.89 Other abnormal findings on diagnostic imaging of central nervous system (principal)
CPT/HCPCS: 70551

== ENCOUNTER 2025-07-15 06:07 | Day surgery (SDC) | payer OTHER, SELFPAY ==
[2025-07-15 06:25] VITALS: BP 133/88; PULSE 85; RESP 16; TEMP 36.5; O2SAT 97
[2025-07-15] MEDS: Celecoxib 200 MG CAP 400 MG PO (06:44)
[2025-07-15] MEDS: Acetaminophen 500 MG TAB 1000 MG PO (06:44)
[2025-07-15] MEDS: Lactated Ringers 1,000 ML 80 ML IV (06:45)
--- NOTE | 2025-07-15 06:54 | W.ANESPRE ---
General Info Date of Service Date Performed: 07/15/25 Height: 5 ft 9 in Weight: 131.1 kg Body Mass Index (BMI): 42.7 Surgical Procedure: Operation Date: 07/15/25 07:40 Proposed Procedure Side Surgeon p Wrist ECTR Right Enio Latif MD Meds Allergies and Home Medications Allergies Allergy/AdvReac Type Severity Reaction Status Date / Time amoxicillin Allergy Intermediate Skin Rash Verified 07/15/25 06:35 latex Allergy Intermediate Skin Rash Verified 07/15/25 06:35 Penicillins Allergy Intermediate Skin Rash Verified 07/15/25 06:35 azithromycin (From Zithromax) Allergy Unknown Unknown Verified 07/15/25 06:35 lidocaine Allergy Unknown Unknown Verified 07/15/25 06:35 Tetanus Vaccines and Toxoid Allergy Unknown Unknown Verified 07/15/25 06:35 (Tetanus Vaccines & Toxoid) tramadol Allergy Unknown Unknown Verified 07/15/25 06:35 Egg Derived AdvReac Intermediate Nausea Verified 07/15/25 06:35 lactose AdvReac Unknown Verified 07/15/25 06:35 Home Medication ?Medication ?Instructions ?Recorded montelukast 10 mg tablet 10 mg PO DAILY #90 tab-caps 05/07/15 (Singulair) ibuprofen 600 mg tablet 600 mg PO Q6H PRN #20 tabs 02/01/17 acetaminophen 500 mg tablet 500 mg PO Q6H PRN 04/10/23 (Tylenol Extra Strength) cetirizine 10 mg tablet 10 mg PO DAILY PRN 04/10/23 ergocalciferol (vitamin D2) 2,000 unit PO DAILY 04/10/23 levothyroxine 25 mcg capsule 25 mcg PO DAILY 04/10/23 fluticasone propionate 50 2 spray intranasal DAILY #16 grams 05/01/23 mcg/actuation nasal spray,suspension (Flonase Allergy Relief) albuterol sulfate 90 mcg/actuation 2 puff inhalation Q6H PRN 01/02/24 aerosol inhaler (ProAir HFA) clonazepam 0.5 mg tablet 0.5 mg PO BID PRN 05/01/24 hydroxyzine HCl 25 mg tablet 50 mg PO QHS 06/26/24 dextroamphetamine-amphetamine 20 20 mg PO DAILY 03/20/25 mg tablet pantoprazole 40 mg tablet,delayed 40 mg PO DAILY 03/20/25 release sertraline 50 mg tablet 100 mg PO DAILY 05/29/25 sumatriptan succinate 100 mg tablet See Rx Instructions PO .COMPLEX #9 06/16/25 tabs cyclobenzaprine 5 mg tablet mg 07/15/25 Current Visit Medications: Current Medications Generic Name Dose Route Start Last Admin Trade Name Naveed PRN Reason Stop Dose Admin Acetaminophen 1,000 mg 07/15/25 06:00 07/15/25 06:44 Acetaminophen 500 Mg Tab PO 07/15/25 23:59 1,000 mg PREOP NAYANA Administration Celecoxib 400 mg 07/15/25 06:00 07/15/25 06:44 Celecoxib 200 Mg Cap PO 07/15/25 23:59 400 mg PREOP NAYANA Administration Ringer's Solution 1,000 mls @ 80 mls/hr 07/15/25 06:00 07/15/25 06:45 IV 07/15/25 23:59 80 mls/hr INFUSION NAYANA Administration Cefazolin Sodium/Dextrose 2 gm in 50 mls @ 100 mls/hr 07/15/25 06:00 Ancef Duplex IVPB 07/15/25 23:59 PREOP NAYANA IV Miscellaneous Supplies 1 each 07/15/25 06:00 Iv Access IV 07/15/25 23:59 DIRECTED NAYANA Sodium Chloride 0 ml 07/15/25 06:00 Normal Saline Flush 10 Ml Syr IV 07/15/25 23:59 PRN PRN Sodium Chloride 0 ml 07/15/25 06:00 Normal Saline 10 Ml Vial IJ 07/15/25 23:59 DIRECTED PRN Sterile Water 0 ml 07/15/25 06:00 Water,Injection,Sterile 10 Ml Vial IJ 07/15/25 23:59 DIRECTED PRN PFSH Active Problems Active Problems: Problem Status Onset Code Lateral epicondylitis of right elbow Acute M77.11 Carpal tunnel syndrome of right wrist Acute G56.01 Carpal tunnel syndrome of left wrist Acute G56.02 Dizziness Acute R42 Migraine headache without aura Acute G43.009 Medication overuse headache Acute G44.40 Migraine headache with aura Acute G43.109 Chronic headache Acute R51.9, G89.29 Abnormal brain MRI Acute R90.89 Localized enlarged lymph nodes Acute R59.0 Ear itch Acute L29.9 Sinus pressure Acute J34.89 Vapes nicotine containing substance Acute Z72.0 Pain of left heel Acute M79.672 Heel spur Acute M77.30 Patellar tendinitis of right knee Acute M76.51 Internal derangement of right knee Acute M23.91 Anxiety Acute F41.9 Asthma Acute J45.909 Chronic abdominal pain Acute R10.9, G89.29 Depression Acute 03/16/15 F32.9 Hidradenitis suppurativa Acute L73.2 Medical History Medical History IBS (irritable bowel syndrome) Family history of MS (multiple sclerosis) Photosensitivity Pain of left orbit 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 and February 2024: NIL/+HPV --> colp Apr 2024: benign appearing Repeat pap 2024 History of endometriosis Derangement of right knee Diarrhea Cervical lymphadenopathy Jaw pain Neck swelling Low back pain Dehydration HLD (hyperlipidemia) Early menopause Cigarette smoker Chronic sinusitis Adjustment disorder with mixed anxiety and depressed mood Grief reaction At risk for sleep apnea Morbid obesity Hypothyroidism Fatigue Lumbar back pain with radiculopathy affecting lower extremity GERD (gastroesophageal reflux disease) Vitamin D deficiency Fatty liver disease, nonalcoholic Blood glucose elevated Plantar fasciitis Surgical History Surgical History Tonsillectomy 16 YRS OLD Talha Fundoplication (~2006) HYSTERECTOMY (~2006) At age 22 due to ENDOMETRIOSIS Hysterectomy-BSO, cervix intact Tobacco Smoking/Tobacco Use Status: Current every day Passive smoking exposure: No Alcohol Alcohol Intake: never Substance Use Substance use: Never Substance use type: does not use Prental History History 1 Para 0 Hx # Term Pregnancies Multiple births Hx # Pregnancies Ectopic pregnancies AB induced Hx Number of Living Children 0 AB spontaneous 1 Vital Signs and Lab Results Vital Signs Most Recent Vital Signs in EMR: Most Recent Vital Signs Temp Pulse Resp BP Pulse Ox 36.5 C 85 16 133/88 97 07/15/25 06:25 07/15/25 06:25 07/15/25 06:25 07/15/25 06:25 07/15/25 06:25 Anesthesia Assessment and Plan Anesthesia History Personal History: Other Family History: No Family History of Anesthesia Complications Exercise Tolerance Exercise Tolerance: Metabolic Equivalents>4 Pertinent Negatives Pertinent Negatives: No Symptoms of GERD and No Major Cardiovascular Symptoms or Complaints Cardiac & Pulmonary Exam Cardiac Exam: Normal S1/S2 Heart Sounds Pulmonary Exam: Clear Bilateral Breath Sounds Implantable Cardiac Device Does patient have a Pacemaker or an ICD?: No Airway Exam Known Difficult Airway: No Mallampati Class: 2 Mouth Opening: Normal (> 3cm) Thyromental Distance: Less than 3 cm Neck Range of Motion: Full ROM Neck Circumference: Normal Teeth Condition: Normal Dentition ASA Classification ASA Score: ASA 3 Emergency Case?: No NPO Status NPO Status: NPO Clears >2 hours, Solids >8 hours Status Status: History of Hysterectomy Anesthesia Plan Resuscitation Status: Full Code Anesthesia Technique: General Anesthesia Airway Planned: Natural Airway Monitors Used: Standard Monitors
[2025-07-15 06:59] VITALS: BMI 42.7
--- NOTE | 2025-07-15 07:00 | W.PM.DSUDISC ---
Date of service: 07/15/25 Discharge Plan Disposition Patient Disposition: Home Condition: Good Discharge Details Reason For Visit: Right carpal tunnel syndrome Attending Provider: Enio Latif Primary Care Provider: GABRIEL FLOREZ Home Meds and New Rx's Prescriptions: New hydrocodone-acetaminophen 5-325 mg tablet 1 tab PO Q6H PRN (Reason: severe pain) Qty: 4 0RF Rx Instructions: Take one tablet up to every 6 hours as needed for severe postoperative pain acetaminophen 500 mg tablet 500 mg PO Q6H PRN (Reason: pain) Qty: 60 2RF ibuprofen 600 mg tablet 600 mg PO TID PRN (Reason: pain) Qty: 60 0RF Continued fluticasone propionate [Flonase Allergy Relief] 50 mcg/actuation spray,suspension 2 spray intranasal DAILY Qty: 16 0RF Rx Instructions: administer into each nostril hydroxyzine HCl 25 mg tablet 50 mg PO QHS dextroamphetamine-amphetamine 20 mg tablet 20 mg PO DAILY Patient Comments: TAKE ONE TABLET BY MOUTH EVERY DAY DIRECTED FOR 28 DAYS pantoprazole 40 mg tablet,delayed release (DR/EC) 40 mg PO DAILY Patient Comments: TAKE ONE TABLET BY MOUTH TWICE A DAY, 30 MINUTES BEFORE LARGEST MEAL OF THE DAY sertraline 50 mg tablet 100 mg PO DAILY Patient Comments: TAKE ONE TABLET BY MOUTH EVERY DAY DIRECTED FOR MOOD sumatriptan succinate 100 mg tablet See Rx Instructions PO .COMPLEX Qty: 9 5RF Rx Instructions: take 1 tab at onset of headache; if no relief, may repeat 1 tab after at least 2 hrs; max = 2 tabs/24 hrs PO montelukast [Singulair] 10 MG tablet 10 mg PO DAILY Qty: 90 ergocalciferol (vitamin D2) 2,000 unit PO DAILY levothyroxine 25 mcg capsule 25 mcg PO DAILY cetirizine 10 mg tablet 10 mg PO DAILY PRN albuterol sulfate [ProAir HFA] 90 mcg/actuation HFA aerosol inhaler 2 puff inhalation Q6H PRN clonazepam 0.5 mg tablet 0.5 mg PO BID PRN cyclobenzaprine 5 mg tablet Patient Comments: TAKE ONE TABLET BY MOUTH AT BEDTIME NEEDED FOR MUSCLE SPASMS Discontinued acetaminophen [Tylenol Extra Strength] 500 mg tablet 500 mg PO Q6H PRN ibuprofen 600 MG tablet 600 mg PO Q6H PRNQty: 20 0RF Discharge Instructions Stand Alone Forms: Anesthesia Discharge Inst., Salomon Núñez Tunnel Release, Anila Lea (DSU) Referrals: Enio Latif MD [ [facility] STAFF PHYSICIAN, Orthopaedic Surgical] Activity:: Elevate Remove Dressings/Wound Care:: 48 hours Shower/Bathe:: 48 hours Diet:: As Tolerated Discharge Orders Discharge Orders: Discharge Order (Routine); Ordered 07/15/25 Ordered By: Jahaira Ackerman
--- NOTE | 2025-07-15 07:14 | W.PM.OP ---
Operative Note Operative Note PRE-OP DIAGNOSIS: Right Carpal Tunnel Syndrome POST-OP DIAGNOSIS: same PROCEDURE: Right Endoscopic Carpal Tunnel Release SURGEON: Enio Latif ANESTHESIA TYPE: General:No Airway Refer to Anesthesia Record ESTIMATED BLOOD LOSS: 0 PATHOLOGY: none sent TOURNIQUET TIME: 7 COMPLICATIONS: None Patient was transported to: same day Patient's condition: stable Indications: I have seen Jennifer in clinic for symptoms of carpal tunnel syndrome. The numbness, tingling, and pain limited function. Clinical exam findings and nerve conduction studies confirmed the diagnosis of carpal tunnel syndrome. Nonoperative measures such as bracing, time, activity modifications had been tried but disability and pain persisted. I discussed carpal tunnel release with the patient. I reviewed the risks of the procedure to include, but not limited to, bleeding, infection, pain, stiffness, incomplete release, damage to nerves or vessels, persistent numbness, recurrence. Despite these risks, the patient elected to proceed. Findings: There was tightened carpal tunnel. This was dilated and released successfully with the endoscopic with increased space within the tunnel. The antebrachial fascia was released proximally freeing the median nerve at the wrist. Procedure Description: Jennifer was greeted in the preoperative holding area where the correct side was identified and marked. The consent was reviewed with the patient and signed. The history and physical was updated. All questions were answered. She was taken back to the operating room. The patient was placed into the supine position on the operating room table with the right arm on an arm board. A nonsterile tourniquet was placed high onto the arm. All bony prominences were well padded. Prophylactic antibiotics in the form of Cefazolin were administered. The right arm was then prepped with Chloraprep and draped in a standard fashion with stockinette and extremity drape. A timeout to confirm correct identity, side and site, procedure, allergies, anesthesia, and medical concerns was performed. The surgical site was marked in the volar wrist creases in line with the radial border of the fourth ray. This area was anesthetized with approximately 6cc of 1% Lidocaine. The limb was then exsanguinated with an Esmarch. The skin was incised with a 15 blade, approximately 1cm. The skin only was cut and the deeper tissue was dissected bluntly with a tenotomy scissor, avoiding passing nerve and venous structures. The fascia was penetrated and opened bluntly. A two-prong skin hook was placed under this proximal fascial edge. A series of hamate finders were used to identify and dilate the carpal tunnel. Synovial elevator was used to free synovial attachments to the underside of the transverse carpal ligament. My thumb was kept in the palm to ricky the distal extent of the carpal tunnel and correctly position the hand. The Microaire endoscope was inserted without difficulty and without resistance. There was some fat at the entrance the carpal tunnel which had to be dissected. Initial entry into the carpal tunnel was tight but also showed some residual synovial attachments. Therefore, the synovial elevator was reinserted and debrided the underside of the transverse carpal ligament. Then the scope was reinserted with excellent visualization showing horizontally running fibers of the transverse carpal ligament (TCL). The distal extent of the TCL was visualized and the end of the scope palpated with the thumb. The blade was elevated and withdrawn from distal to proximal. The TCL was split into two flaps. The endoscope was reinserted to confirm complete release and any remnant ligament was incised. The scope was withdrawn and the proximal aspect of the carpal tunnel was grossly inspected and appeared release with the median nerve visible. The antebrachial fascia at the level of the wrist was then freed from the overlying skin and then the underlying median nerve with blunt dissection. This was transected longitudinally for about 3cm proximal to the wrist incision. The wound was then irrigated with easy flow of irrigant distally and proximally. The incision was closed with a single 4-0 Nylon suture. The wound was dressed with Xeroform, Gauze, Kerlix and Jared. The tourniquet was deflated with the initial dressing and held with some pressure. Blood flow returned easily to all digits with capillary refill less than 2 seconds. The patient tolerated the procedure well and was returned to the Same Day Surgery area in a stable condition suffering no known complication. Date of Procedure: 07/15/25
--- NOTE | 2025-07-15 07:14 | W.PREOPHP ---
Assessment and Plan Assessment and plan (1) Carpal tunnel syndrome of right wrist: Status: Acute Assessment and plan: Jennifer is a 40-year-old female with carpal tunnel syndrome about both hands, worse on the right side. She is exhausted nonoperative options and is here today for carpal tunnel release. She denies any new medical issues. No sick contacts. No chest pain shortness of breath or recent illness. I reviewed the carpal tunnel surgery with her once again. I discussed the technical details. I discussed risk to include bleeding, infection, pain, stiffness, residual numbness, incomplete release, need for repeat procedures, persistent soreness or weakness within the palm or hand. Despite these risk, she elects to proceed. History of Present Illness History of Present Illness Chief Complaint: Bilateral, right worse than left, carpal tunnel syndrome Narrative: Jennifer is a 40-year-old female who has carpal tunnel syndrome of both sides, worse on the right. Please see previous office note for complete detailed history. She is here today for carpal tunnel release. She denies any new symptoms. No chest pain or shortness of breath. She continues have numbness and tingling and pain about both hands, worse on the right side. She is right-hand dominant. Review of Systems All systems reviewed & are unremarkable except as noted in HPI and below PFSH All Active Problems Lateral epicondylitis of right elbow (Acute) Carpal tunnel syndrome of right wrist (Acute) Carpal tunnel syndrome of left wrist (Acute) Dizziness (Acute) Migraine headache without aura (Acute) Medication overuse headache (Acute) Migraine headache with aura (Acute) Chronic headache (Acute) Abnormal brain MRI (Acute) Localized enlarged lymph nodes (Acute) Ear itch (Acute) Sinus pressure (Acute) Vapes nicotine containing substance (Acute) Pain of left heel (Acute) Heel spur (Acute) Patellar tendinitis of right knee (Acute) Internal derangement of right knee (Acute) Anxiety (Acute) Asthma (Acute) Chronic abdominal pain (Acute) Depression (Acute 03/16/15) Hidradenitis suppurativa (Acute) Previous resection in the axilla and groin Medical History IBS (irritable bowel syndrome) Family history of MS (multiple sclerosis) Photosensitivity Pain of left orbit 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 and February 2024: NIL/+HPV --> colp Apr 2024: benign appearing Repeat pap 2024 History of endometriosis Derangement of right knee Diarrhea Cervical lymphadenopathy Jaw pain Neck swelling Low back pain Dehydration HLD (hyperlipidemia) Early menopause Cigarette smoker Chronic sinusitis Adjustment disorder with mixed anxiety and depressed mood Grief reaction At risk for sleep apnea Morbid obesity Hypothyroidism Fatigue Lumbar back pain with radiculopathy affecting lower extremity GERD (gastroesophageal reflux disease) Vitamin D deficiency Fatty liver disease, nonalcoholic Blood glucose elevated Plantar fasciitis Surgical History Tonsillectomy 16 YRS OLD Talha Fundoplication (~2006) HYSTERECTOMY (~2006) At age 22 due to ENDOMETRIOSIS Hysterectomy-BSO, cervix intact Family History Mother Personal history of malignant neoplasm SKIN Hypoglycemia Grandmother Heart disease Malignant neoplasm of breast with BRCA1 gene mutation Social History Smoking/Tobacco Use Status: Current every day Tobacco Type: e-cigarettes Tobacco: How many years used: 21 Quit status: has quit before Smoking risk assessment performed?: Yes Alcohol Intake: never Drug use: Never Substance use type: does not use Household members: significant other Housing: apartment Number of Children: 0 current occupation: [employer] Do you feel safe at home: Yes Do you feel safe in your relationship?: Yes Additional Social history: lives alone History History 1 Para 0 Hx # Term Pregnancies Multiple births Hx # Pregnancies Ectopic pregnancies AB induced Hx Number of Living Children 0 AB spontaneous 1 Meds Allergies and Home Medications Allergies Allergy/AdvReac Type Severity Reaction Status Date / Time amoxicillin Allergy Intermediate Skin Rash Verified 07/15/25 06:35 latex Allergy Intermediate Skin Rash Verified 07/15/25 06:35 Penicillins Allergy Intermediate Skin Rash Verified 07/15/25 06:35 azithromycin (From Zithromax) Allergy Unknown Unknown Verified 07/15/25 06:35 lidocaine Allergy Unknown Unknown Verified 07/15/25 06:35 Tetanus Vaccines and Toxoid Allergy Unknown Unknown Verified 07/15/25 06:35 (Tetanus Vaccines & Toxoid) tramadol Allergy Unknown Unknown Verified 07/15/25 06:35 Egg Derived AdvReac Intermediate Nausea Verified 07/15/25 06:35 lactose AdvReac Unknown Verified 07/15/25 06:35 Home Medications ?Medication ?Instructions ?Recorded ?Confirmed ?Type montelukast 10 mg tablet 10 mg PO DAILY #90 tab-caps 05/07/15 07/15/25 History (Singulair) cetirizine 10 mg tablet 10 mg PO DAILY PRN 04/10/23 07/15/25 History ergocalciferol (vitamin D2) 2,000 unit PO DAILY 04/10/23 07/14/25 History levothyroxine 25 mcg capsule 25 mcg PO DAILY 04/10/23 07/15/25 History fluticasone propionate 50 2 spray intranasal DAILY #16 grams 05/01/23 07/15/25 Rx mcg/actuation nasal spray,suspension (Flonase Allergy Relief) albuterol sulfate 90 mcg/actuation 2 puff inhalation Q6H PRN 01/02/24 07/15/25 History aerosol inhaler (ProAir HFA) clonazepam 0.5 mg tablet 0.5 mg PO BID PRN 05/01/24 07/15/25 History hydroxyzine HCl 25 mg tablet 50 mg PO QHS 06/26/24 07/15/25 History dextroamphetamine-amphetamine 20 20 mg PO DAILY 03/20/25 07/15/25 History mg tablet pantoprazole 40 mg tablet,delayed 40 mg PO DAILY 03/20/25 07/15/25 History release sertraline 50 mg tablet 100 mg PO DAILY 05/29/25 07/15/25 History sumatriptan succinate 100 mg tablet See Rx Instructions PO .COMPLEX #9 06/16/25 07/15/25 Rx tabs acetaminophen 500 mg tablet 500 mg PO Q6H PRN pain #60 tabs 07/15/25 Rx cyclobenzaprine 5 mg tablet mg 07/15/25 History hydrocodone 5 mg-acetaminophen 325 1 tab PO Q6H PRN severe pain #4 07/15/25 Rx mg tablet tabs ibuprofen 600 mg tablet 600 mg PO TID PRN pain #60 tabs 07/15/25 Rx Exam Const General: cooperative, healthy appearing, comfortable and no acute distress Resp Effort & Inspection: normal respiratory effort Auscultation: clear to auscultation bilaterally Cardio Rate: regular rate Rhythm: regular rhythm Results Last Vital Signs Temp 36.5 C 07/15/25 06:25 Pulse 85 07/15/25 06:25 Resp 16 07/15/25 06:25 BP 133/88 07/15/25 06:25 Pulse Ox 97 07/15/25 06:25
[2025-07-15] MEDS: ceFAZolin 2 GM/50 ML BAG IVPB (07:27)
[2025-07-15] MEDS: Lidocaine 1% Multi-Dose W/EPI 1/100,000 50 ML VIAL (07:41)
[2025-07-15 07:57] VITALS: BP 82/73; PULSE 74; RESP 16; TEMP 36.5; O2SAT 98
--- NOTE | 2025-07-15 08:08 | W.ANESPOSTOP ---
Postoperative Evaluation Date, Time and Location Date Performed: 07/15/25 Time Performed: 08:08 Patient Location: Day Surgery Unit Vital Signs Most Recent Imported Vital Signs: Most Recent Vital Signs Temp Pulse Resp BP Pulse Ox 36.5 C 74 16 82/73 L 98 07/15/25 07:57 07/15/25 07:57 07/15/25 07:57 07/15/25 07:57 07/15/25 07:57 Pain Score Most Recent Pain Score: Most Recent Pain Score Pain Level 0 07/15/25 07:57 Assessment Mental Status: Awake (Alert & Oriented to Patient Baseline) Airway and Respiratory Function: Patent airway with normal (patient baseline) respiratory exam Cardiovascular Function: Hemodynamically Stable Hydration Status: Adequately Hydrated Nausea & Vomiting: No Nausea or Vomiting Pain: Pt. Denies Any Pain Peripheral Nerve Block: Patient did not receive a nerve block
[2025-07-15 08:23] VITALS: BP 108/80; PULSE 65; RESP 16; TEMP 36.6; O2SAT 100
== END 2025-07-15 08:27 | disposition home or self-care (01) ==
PROVIDERS: PCP Nurse Practitioner Family; Visit Provider Student in an Organized Health Care Education/Training Program
PROC: 01N54ZZ Release Median Nerve, Percutaneous Endoscopic Approach (ICD-10-PCS; CPT 29848; principal; 2025-07-15 07:30)
DX: G56.01 Carpal tunnel syndrome, right upper limb (principal)
CPT/HCPCS: 29848; J0690; J2004; J2250; J2405; J2704

== ENCOUNTER 2025-08-19 13:09 | Day surgery (SDC) | payer OTHER, SELFPAY ==
--- NOTE | 2025-08-19 07:42 | W.PM.DSUDISC ---
Date of service: 08/19/25 Discharge Plan Disposition Patient Disposition: Home Condition: Good Discharge Details Reason For Visit: Left carpal tunnel syndrome Attending Provider: Enio Latif Primary Care Provider: GABRIEL FLOREZ Home Meds and New Rx's Prescriptions: New hydrocodone-acetaminophen 5-325 mg tablet 1 tab PO Q6H PRN (Reason: severe pain) Qty: 4 0RF Rx Instructions: Take one tablet up to every 6 hours as needed for severe postoperative pain ibuprofen 600 mg tablet 600 mg PO TID PRN (Reason: pain) Qty: 60 0RF Continued fluticasone propionate [Flonase Allergy Relief] 50 mcg/actuation spray,suspension 2 spray intranasal DAILY Qty: 16 0RF Rx Instructions: administer into each nostril hydroxyzine HCl 25 mg tablet 50 mg PO QHS dextroamphetamine-amphetamine 20 mg tablet 20 mg PO DAILY Patient Comments: TAKE ONE TABLET BY MOUTH EVERY DAY DIRECTED FOR 28 DAYS pantoprazole 40 mg tablet,delayed release (DR/EC) 40 mg PO DAILY Patient Comments: TAKE ONE TABLET BY MOUTH TWICE A DAY, 30 MINUTES BEFORE LARGEST MEAL OF THE DAY sertraline 50 mg tablet 100 mg PO DAILY Patient Comments: TAKE ONE TABLET BY MOUTH EVERY DAY DIRECTED FOR MOOD sumatriptan succinate 100 mg tablet See Rx Instructions PO .COMPLEX Qty: 9 5RF Rx Instructions: take 1 tab at onset of headache; if no relief, may repeat 1 tab after at least 2 hrs; max = 2 tabs/24 hrs PO prednisone 5 mg tablet 5 mg PO DAILY Qty: 30 0RF Rx Instructions: Take 4 tabs (2omg) for 3 days, 3 tabs (15mg) for 3 days, 2 tabs (10mg) for 3 days, and then 1 tab (5mg) for 3 days montelukast [Singulair] 10 MG tablet 10 mg PO DAILY Qty: 90 ergocalciferol (vitamin D2) 2,000 unit PO DAILY levothyroxine 25 mcg capsule 25 mcg PO DAILY cetirizine 10 mg tablet 10 mg PO DAILY PRN albuterol sulfate [ProAir HFA] 90 mcg/actuation HFA aerosol inhaler 2 puff inhalation Q6H PRN clonazepam 0.5 mg tablet 0.5 mg PO BID PRN cyclobenzaprine 5 mg tablet 5 mg PO HS Patient Comments: TAKE ONE TABLET BY MOUTH AT BEDTIME NEEDED FOR MUSCLE SPASMS acetaminophen 500 mg tablet 500 mg PO Q6H PRN (Reason: pain) Qty: 60 2RF Discontinued ibuprofen 600 mg tablet 600 mg PO TID PRN (Reason: pain) Qty: 60 0RF Discharge Instructions Stand Alone Forms: Salomon Núñez Tunnel Release, Portal Information Activity:: Elevate Remove Dressings/Wound Care:: 48 hours Shower/Bathe:: 48 hours Diet:: As Tolerated Discharge Orders Discharge Orders: Discharge Order (Routine); Ordered 08/19/25 Ordered By: Jahaira Ackerman
[2025-08-19 13:15] VITALS: BP 120/91; PULSE 99; RESP 22; TEMP 35.9; O2SAT 98
--- NOTE | 2025-08-19 13:36 | W.ANESPRE ---
General Info Date of Service Date Performed: 08/19/25 Height: 5 ft 9 in Weight: 131.542 kg Body Mass Index (BMI): 42.8 Surgical Procedure: Operation Date: 08/19/25 16:10 Proposed Procedure Side Surgeon p Wrist ECTR Left Enio Latif MD Actual Procedure Side Surgeon p Wrist ECTR Left Enio Latif MD Meds Allergies and Home Medications Allergies Allergy/AdvReac Type Severity Reaction Status Date / Time amoxicillin Allergy Intermediate Skin Rash Verified 08/19/25 13:34 latex Allergy Intermediate Skin Rash Verified 08/19/25 13:34 Penicillins Allergy Intermediate Skin Rash Verified 08/19/25 13:34 azithromycin (From Zithromax) Allergy Unknown Unknown Verified 08/19/25 13:34 lidocaine Allergy Unknown Unknown Verified 08/19/25 13:34 Tetanus Vaccines and Toxoid Allergy Unknown Unknown Verified 08/19/25 13:34 (Tetanus Vaccines & Toxoid) tramadol Allergy Unknown Unknown Verified 08/19/25 13:34 Egg Derived AdvReac Intermediate Nausea Verified 08/19/25 13:34 lactose AdvReac Unknown Verified 08/19/25 13:34 Home Medication ?Medication ?Instructions ?Recorded montelukast 10 mg tablet 10 mg PO DAILY #90 tab-caps 05/07/15 (Singulair) cetirizine 10 mg tablet 10 mg PO DAILY PRN 04/10/23 ergocalciferol (vitamin D2) 2,000 unit PO DAILY 04/10/23 levothyroxine 25 mcg capsule 25 mcg PO DAILY 04/10/23 fluticasone propionate 50 2 spray intranasal DAILY #16 grams 05/01/23 mcg/actuation nasal spray,suspension (Flonase Allergy Relief) albuterol sulfate 90 mcg/actuation 2 puff inhalation Q6H PRN 01/02/24 aerosol inhaler (ProAir HFA) clonazepam 0.5 mg tablet 0.5 mg PO BID PRN 05/01/24 hydroxyzine HCl 25 mg tablet 50 mg PO QHS 06/26/24 dextroamphetamine-amphetamine 20 20 mg PO DAILY 03/20/25 mg tablet pantoprazole 40 mg tablet,delayed 40 mg PO DAILY 03/20/25 release sertraline 50 mg tablet 100 mg PO DAILY 05/29/25 sumatriptan succinate 100 mg tablet See Rx Instructions PO .COMPLEX #9 06/16/25 tabs acetaminophen 500 mg tablet 500 mg PO Q6H PRN pain #60 tabs 07/15/25 cyclobenzaprine 5 mg tablet 5 mg PO HS 07/15/25 prednisone 5 mg tablet 5 mg PO DAILY #30 tabs 08/08/25 hydrocodone 5 mg-acetaminophen 325 1 tab PO Q6H PRN severe pain #4 08/19/25 mg tablet tabs ibuprofen 600 mg tablet 600 mg PO TID PRN pain #60 tabs 08/19/25 Current Visit Medications: Current Medications Generic Name Dose Route Start Last Admin Trade Name Freq PRN Reason Stop Dose Admin Acetaminophen 1,000 mg 08/19/25 06:00 Acetaminophen 500 Mg Tab PO 08/19/25 23:59 PREOP NAYANA Acetaminophen 650 mg 08/19/25 07:41 Acetaminophen 325 Mg Tab PO 09/18/25 07:40 Q4H PRN PRN Hydrocodone Bitart/Acetaminophen 0 tab 08/19/25 07:41 Hydrocodone 5/Acetaminophen 325 Tab PO 09/18/25 07:40 Q3H PRN PRN Pain Celecoxib 400 mg 08/19/25 06:00 Celecoxib 200 Mg Cap PO 08/19/25 23:59 PREOP NAYANA Ringer's Solution 1,000 mls @ 80 mls/hr 08/19/25 06:00 IV 08/19/25 23:59 INFUSION NAYANA Cefazolin Sodium/Dextrose 2 gm in 50 mls @ 100 mls/hr 08/19/25 06:00 Ancef Duplex IVPB 08/19/25 23:59 PREOP NAYANA Sodium Chloride 0 ml 08/19/25 06:00 Normal Saline Flush 10 Ml Syr IV 08/19/25 23:59 PRN PRN Sodium Chloride 0 ml 08/19/25 06:00 Normal Saline 10 Ml Vial IJ 08/19/25 23:59 DIRECTED PRN Sterile Water 0 ml 08/19/25 06:00 Water,Injection,Sterile 10 Ml Vial IJ 08/19/25 23:59 DIRECTED PRN PFSH Active Problems Active Problems: Problem Status Onset Code Lateral epicondylitis of right elbow Acute M77.11 Carpal tunnel syndrome of right wrist Acute G56.01 Carpal tunnel syndrome of left wrist Acute G56.02 Dizziness Acute R42 Migraine headache without aura Acute G43.009 Medication overuse headache Acute G44.40 Migraine headache with aura Acute G43.109 Chronic headache Acute R51.9, G89.29 Abnormal brain MRI Acute R90.89 Localized enlarged lymph nodes Acute R59.0 Ear itch Acute L29.9 Sinus pressure Acute J34.89 Vapes nicotine containing substance Acute Z72.0 Pain of left heel Acute M79.672 Heel spur Acute M77.30 Patellar tendinitis of right knee Acute M76.51 Internal derangement of right knee Acute M23.91 Anxiety Acute F41.9 Asthma Acute J45.909 Chronic abdominal pain Acute R10.9, G89.29 Depression Acute 03/16/ F32.9 Hidradenitis suppurativa Acute L73.2 Medical History Medical History IBS (irritable bowel syndrome) Family history of MS (multiple sclerosis) Photosensitivity Pain of left orbit 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 and February 2024: NIL/+HPV --> colp Apr 2024: benign appearing Repeat pap 2024: HPV+ -->colp: benign appearing History of endometriosis Derangement of right knee Diarrhea Cervical lymphadenopathy Jaw pain Neck swelling Low back pain Dehydration HLD (hyperlipidemia) Early menopause Cigarette smoker Chronic sinusitis Adjustment disorder with mixed anxiety and depressed mood Grief reaction At risk for sleep apnea Morbid obesity Hypothyroidism Fatigue Lumbar back pain with radiculopathy affecting lower extremity GERD (gastroesophageal reflux disease) Vitamin D deficiency Fatty liver disease, nonalcoholic Blood glucose elevated Plantar fasciitis Surgical History Surgical History Tonsillectomy 16 YRS OLD Talha Fundoplication (~2006) HYSTERECTOMY (~2006) At age 22 due to ENDOMETRIOSIS Hysterectomy-BSO, cervix intact Tobacco Smoking/Tobacco Use Status: Current every day Tobacco Type: e-cigarettes Passive smoking exposure: No Alcohol Alcohol Intake: never Substance Use Substance use: Never Substance use type: does not use Prental History History 1 Para 0 Hx # Term Pregnancies Multiple births Hx # Pregnancies Ectopic pregnancies AB induced Hx Number of Living Children 0 AB spontaneous 1 Imaging and Studies Imaging and Studies Study information below may be from another EMR and interpreted by another provider. Please see original notes in EMR for more complete details. EKG Summary: 02/25/24: Exam: Resting ECG Reason for Exam: episodes of CP Patient Location: E HR:66 bpm ECG Measurements Heart Rate 66 AXIS OK 172 P 13 QRSd 86 QRS 25 QT 419 T30 QTc 439 Conclusion Sinus rhythm...normal P axis, V-rate 60- 99 I have reviewed and I agree with the emergency room physician's ECG interpretation. Anesthesia Assessment and Plan Anesthesia History Personal History: Other Family History: No Family History of Anesthesia Complications Exercise Tolerance Exercise Tolerance: Metabolic Equivalents>4 Cardiac & Pulmonary Exam Cardiac Exam: Normal S1/S2 Heart Sounds Pulmonary Exam: Clear Bilateral Breath Sounds Implantable Cardiac Device Does patient have a Pacemaker or an ICD?: No Airway Exam Known Difficult Airway: No Mallampati Class: 2 Mouth Opening: Normal (> 3cm) Thyromental Distance: Less than 3 cm Neck Range of Motion: Full ROM Neck Circumference: Normal Teeth Condition: Normal Dentition ASA Classification ASA Score: ASA 2 Emergency Case?: No NPO Status NPO Status: NPO Clears >2 hours, Solids >8 hours Status Status: History of Hysterectomy Anesthesia Plan Resuscitation Status: Full Code Anesthesia Technique: General Anesthesia Airway Planned: Natural Airway Monitors Used: Standard Monitors
[2025-08-19] MEDS: Acetaminophen 500 MG TAB 1000 MG PO (13:53)
[2025-08-19] MEDS: Celecoxib 200 MG CAP 400 MG PO (13:53)
[2025-08-19] MEDS: Lactated Ringers 1,000 ML 80 ML IV (14:05)
[2025-08-19] MEDS: ceFAZolin 2 GM/50 ML BAG IVPB (14:10)
[2025-08-19 14:12] VITALS: BMI 42.8
[2025-08-19] MEDS: Sodium Bicarbonate 50 MEQ/50 ML VIAL (14:32)
[2025-08-19] MEDS: Lidocaine 1% Multi-Dose W/EPI 1/100,000 50 ML VIAL (14:32)
[2025-08-19 14:41] VITALS: BP 122/81; PULSE 80; RESP 18; TEMP 36.3; O2SAT 93
--- NOTE | 2025-08-19 14:54 | W.ANESPOSTOP ---
Postoperative Evaluation Date, Time and Location Date Performed: 08/19/25 Time Performed: 14:54 Patient Location: Day Surgery Unit Vital Signs Most Recent Imported Vital Signs: Most Recent Vital Signs Temp Pulse Resp BP Pulse Ox 36.3 C L 80 18 122/81 93 08/19/25 14:41 08/19/25 14:41 08/19/25 14:41 08/19/25 14:41 08/19/25 14:41 Pain Score Most Recent Pain Score: Most Recent Pain Score Pain Level 0 08/19/25 14:41 Assessment Mental Status: Awake (Alert & Oriented to Patient Baseline) Airway and Respiratory Function: Patent airway with normal (patient baseline) respiratory exam Cardiovascular Function: Hemodynamically Stable Hydration Status: Adequately Hydrated Nausea & Vomiting: No Nausea or Vomiting Pain: Pt. Denies Any Pain Peripheral Nerve Block: Patient did not receive a nerve block
[2025-08-19 15:12] VITALS: BP 127/76; PULSE 79; RESP 18; TEMP 36.2; O2SAT 98
--- NOTE | 2025-08-19 16:15 | W.PM.OP ---
Operative Note Operative Note PRE-OP DIAGNOSIS: Left Carpal Tunnel Syndrome POST-OP DIAGNOSIS: same PROCEDURE: Left Endoscopic Carpal Tunnel Release SURGEON: Enio Latif ANESTHESIA TYPE: General:No Airway Refer to Anesthesia Record ESTIMATED BLOOD LOSS: 0 PATHOLOGY: none sent TOURNIQUET TIME: 5 COMPLICATIONS: None Patient was transported to: same day Patient's condition: stable Indications: I have seen Jennifer in clinic for symptoms of carpal tunnel syndrome. The numbness, tingling, and pain limited function. Clinical exam findings confirmed the diagnosis of carpal tunnel syndrome. Nonoperative measures such as bracing, time, activity modifications had been tried but disability and pain persisted. She recently had the right side released. Her preoperative symptoms have improved although she still is having some difficulty with swelling and stiffness. I discussed carpal tunnel release with the patient. I reviewed the risks of the procedure to include, but not limited to, bleeding, infection, pain, stiffness, incomplete release, damage to nerves or vessels, persistent numbness, recurrence. Despite these risks, the patient elected to proceed. Findings: There was tightened carpal tunnel. This was dilated and released successfully with the endoscopic with increased space within the tunnel. The antebrachial fascia was released proximally freeing the median nerve at the wrist. Procedure Description: Jennifer was greeted in the preoperative holding area where the correct side was identified and marked. The consent was reviewed with the patient and signed. The history and physical was updated. All questions were answered. She was taken back to the operating room. The patient was placed into the supine position on the operating room table with the left arm on an arm board. A nonsterile tourniquet was placed high onto the arm. All bony prominences were well padded. Prophylactic antibiotics in the form of Cefazolin were administered. The left arm was then prepped with Chloraprep and draped in a standard fashion with stockinette and extremity drape. A timeout to confirm correct identity, side and site, procedure, allergies, anesthesia, and medical concerns was performed. The surgical site was marked in the volar wrist creases in line with the radial border of the fourth ray. This area was anesthetized with approximately 10cc of 1% Lidocaine with Epinephrine, buffered with Sodium Bicarbonate. The limb was then exsanguinated with an Esmarch. The skin was incised with a 15 blade, approximately 1cm. The skin only was cut and the deeper tissue was dissected bluntly with a tenotomy scissor, avoiding passing nerve and venous structures. The fascia was penetrated and opened bluntly. A two-prong skin hook was placed under this proximal fascial edge. A series of hamate finders were used to identify and dilate the carpal tunnel. Synovial elevator was used to free synovial attachments to the underside of the transverse carpal ligament. My thumb was kept in the palm to ricky the distal extent of the carpal tunnel and correctly position the hand. The [employer] endoscope was inserted without difficulty and without resistance. Excellent visualization showed horizontally running fibers of the transverse carpal ligament (TCL). The distal extent of the TCL was visualized and the end of the scope palpated with the thumb. The blade was elevated and withdrawn from distal to proximal. The TCL was split into two flaps. The endoscope was reinserted to confirm complete release and any remnant ligament was incised. The scope was withdrawn and the proximal aspect of the carpal tunnel was grossly inspected and appeared release with the median nerve visible. The antebrachial fascia at the level of the wrist was then freed from the overlying skin and then the underlying median nerve with blunt dissection. This was transected longitudinally for about 3cm proximal to the wrist incision. The wound was then irrigated with easy flow of irrigant distally and proximally. The incision was closed with a single 4-0 Nylon suture. The wound was dressed with Xeroform, Gauze, Kerlix and Jared. The tourniquet was deflated with the initial dressing and held with some pressure. Blood flow returned easily to all digits with capillary refill less than 2 seconds. The patient tolerated the procedure well and was returned to the Same Day Surgery area in a stable condition suffering no known complication. Date of Procedure: 08/19/25
== END 2025-08-19 15:32 | disposition home or self-care (01) ==
LOC: SUR 13:09
PROVIDERS: PCP Nurse Practitioner Family; Visit Provider Student in an Organized Health Care Education/Training Program
PROC: 01N54ZZ Release Median Nerve, Percutaneous Endoscopic Approach (ICD-10-PCS; CPT 29848; principal; 2025-08-19 16:00)
DX: G56.02 Carpal tunnel syndrome, left upper limb (principal)
CPT/HCPCS: 29848; J0690; J2003; J2004; J2250; J2405; J2704